=== PATIENT | male | born 1960 | race Caucasian/White ===

== ENCOUNTER → 2017-01-10 | Outpatient (CLI) | payer BC ==
[2017-01-10 09:26] LABS: CH 29.5; HCT 42.8 % (39.0-53.0); HDW 2.71; HGB 14.4 gm/dL (13.0-17.5); MCH 30.2 pg (25.0-35.0); MCHC 33.6 g/dL (31.0-37.0); MCV 89.8 fL (80.0-100.0); Mean Platelet Volume 7.1; RBC 4.76 m/uL (4.30-5.90); RDW 13.2 % (11.5-15.5); WBC 6.8 k/uL (3.8-10.6)
[2017-01-10 13:14] LABS: Lithium <0.2 mmol/L; Non-African American GFR(MDRD) >60 (>60 ml/min/1.73 sqM)
== END | disposition home or self-care (01) ==
LOC: LABWHC1 08:38
PROVIDERS: ATTEND Psychiatry & Neurology Psychiatry
DX: Z51.81 Encounter for therapeutic drug level monitoring (principal); I10 Essential (primary) hypertension; E03.9 Hypothyroidism, unspecified; Z79.899 Other long term (current) drug therapy
CPT/HCPCS: 36415; 80178; 82565; 84439; 84443; 85027

== ENCOUNTER → 2017-02-06 | Outpatient (CLI) | payer BC ==
[2017-02-06 11:02] LABS: Basophils % (A) 1 %; CH 28.7; CHCM 32.4; Eosinophils # (A) 0.2 k/uL (0-0.7); Eosinophils % (A) 3 %; HCT 45.2 % (39.0-53.0); HGB 14.7 gm/dL (13.0-17.5); Luc # (Auto) 0.23; Luc % (Auto) 3; Lymphocytes # (A) 1.5 k/uL (1.0-4.8); Lymphocytes % (A) 22 %; MCHC 32.6 g/dL (31.0-37.0); MCV 88.9 fL (80.0-100.0); Monocytes # (A) 0.4 k/uL (0-1.0); Monocytes % (A) 6 %; Neutrophils # (A) 4.5 k/uL (1.3-7.7); Neutrophils % (A) 65 %; RBC 5.09 m/uL (4.30-5.90); RDW 12.8 % (11.5-15.5); WBC 6.8 k/uL (3.8-10.6)
[2017-02-06 11:22] LABS: ALT 42 U/L (21-72); AST 25 U/L (17-59); Alkaline Phosphatase 100 U/L (38-126); Anion Gap 9 mmol/L; Blood Urea Nitrogen 19 mg/dL (9-20); Calcium 10.8 mg/dL (8.4-10.2); Carbon Dioxide 25 mmol/L (22-30); Chloride 105 mmol/L (98-107); Cholesterol 188 mg/dL (<200); Glucose 103 mg/dL (74-99); HDL Cholesterol 48 mg/dL (40-60); Lithium 0.6 mmol/L; Non-African American GFR(MDRD) >60 (>60 ml/min/1.73 sqM); Sodium 139 mmol/L (137-145); Triglycerides 118 mg/dL (<150)
[2017-02-06 11:31] LABS: Appearance,Urine Clear (Clear); Bilirubin,Urine Negative (Negative); Glucose,Urine (UA) Negative (Negative); Ketones,Urine Negative (Negative); Leukocyte Esterase,Urine Negative (Negative); Nitrite,Urine Negative (Negative); PH, Urine 5.5 (5.0-8.0); Protein,Urine Negative (Negative); Specific Gravity,Urine 1.009 (1.001-1.035); UA Billing (MACRO vs. MICRO) CHEM; Urobilinogen,Urine <2.0 mg/dL (<2.0)
[2017-02-06 11:58] LABS: Prostate Specific Antigen 2.19 ng/mL (0.00-4.00)
[2017-02-06 12:16] LABS: Vitamin B12 724 pg/mL (239-931)
[2017-02-06 13:21] LABS: Hemoglobin A1C 5.5 % (4.2-6.1)
[2017-02-06 14:24] LABS: Erythrocyte Sedimentation Rate 4 mm/hr (0-15)
== END ==
LOC: LABWHC1 10:15
PROVIDERS: ATTEND Psychiatry & Neurology Psychiatry
DX: I10 Essential (primary) hypertension (principal)
CPT/HCPCS: 36415; 80053; 80061; 80178; 81003; 82306; 82607; 83036; 84153; 84439; 84443; 84481; 85025; 85652

== ENCOUNTER → 2017-05-28 | Outpatient (CLI) | payer BC ==
[2017-05-28 12:52] LABS: CH 29.4; CHCM 33.8; HCT 43.9 % (39.0-53.0); HDW 2.61; HGB 14.9 gm/dL (13.0-17.5); MCH 29.6 pg (25.0-35.0); MCHC 33.9 g/dL (31.0-37.0); MCV 87.3 fL (80.0-100.0); Mean Platelet Volume 6.5; RBC 5.03 m/uL (4.30-5.90); RDW 12.9 % (11.5-15.5); WBC 7.1 k/uL (3.8-10.6)
[2017-05-28 13:10] LABS: ALT 52 U/L (21-72); Anion Gap 10 mmol/L; Blood Urea Nitrogen 20 mg/dL (9-20); Calcium 10.8 mg/dL (8.4-10.2); Carbon Dioxide 21 mmol/L (22-30); Chloride 108 mmol/L (98-107); Glucose 99 mg/dL (74-99); Lithium 0.4 mmol/L; Non-African American GFR(MDRD) >60 (>60 ml/min/1.73 sqM); Potassium 4.8 mmol/L (3.5-5.1); Sodium 139 mmol/L (137-145)
== END | disposition home or self-care (01) ==
LOC: LABWHC1 12:13
PROVIDERS: ATTEND Psychiatry & Neurology Psychiatry
DX: F31.60 Bipolar disorder, current episode mixed, unspecified (principal); Z79.899 Other long term (current) drug therapy
CPT/HCPCS: 36415; 80048; 80178; 84439; 84443; 84460; 85027

== ENCOUNTER → 2017-09-23 | Outpatient (CLI) | payer BC ==
[2017-09-23 11:18] LABS: Lithium 0.5 mmol/L; Non-African American GFR(MDRD) >60 (>60 ml/min/1.73 sqM)
== END | disposition home or self-care (01) ==
LOC: LABWHC1 08:55
PROVIDERS: ATTEND Psychiatry & Neurology Psychiatry
DX: F31.60 Bipolar disorder, current episode mixed, unspecified (principal); Z79.899 Other long term (current) drug therapy
CPT/HCPCS: 36415; 80178; 82565

== ENCOUNTER → 2018-01-17 | Outpatient (CLI) | payer BC ==
[2018-01-17 08:45] LABS: HCT 43.5 % (39.0-53.0); HGB 14.7 gm/dL (13.0-17.5); MCH 29.9 pg (25.0-35.0); MCHC 33.8 g/dL (31.0-37.0); MCV 88.5 fL (80.0-100.0); Mean Platelet Volume 6.5; Platelet Count 381 k/uL (150-450); RBC 4.91 m/uL (4.30-5.90); RDW 12.9 % (11.5-15.5); WBC 8.6 k/uL (3.8-10.6)
[2018-01-17 08:56] LABS: ALT 31 U/L (21-72); AST 24 U/L (17-59); Albumin 4.5 g/dL (3.5-5.0); Alkaline Phosphatase 98 U/L (38-126); Anion Gap 8 mmol/L; Blood Urea Nitrogen 19 mg/dL (9-20); Calcium 11.8 mg/dL (8.4-10.2); Carbon Dioxide 26 mmol/L (22-30); Chloride 104 mmol/L (98-107); Cholesterol 165 mg/dL (<200); Glucose 109 mg/dL (74-99); HDL Cholesterol 62 mg/dL (40-60); LDL Cholesterol,Calculated 85 mg/dL (0-99); Lithium 0.6 mmol/L; Potassium 4.5 mmol/L (3.5-5.1); Sodium 138 mmol/L (137-145); Total Bilirubin 0.9 mg/dL (0.2-1.3); Total Protein 7.4 g/dL (6.3-8.2); Triglycerides 88 mg/dL (<150)
[2018-01-17 09:11] LABS: T4, Free (Free Thyroxine) 1.19 ng/dL (0.78-2.19)
== END | disposition home or self-care (01) ==
LOC: LABWHC1 08:16
PROVIDERS: ATTEND Psychiatry & Neurology Psychiatry
DX: F31.60 Bipolar disorder, current episode mixed, unspecified (principal); Z79.899 Other long term (current) drug therapy
CPT/HCPCS: 36415; 80053; 80061; 80175; 80178; 84439; 84443; 85027

== ENCOUNTER → 2018-01-22 | Outpatient (CLI) | payer BC ==
[2018-01-22 22:16] LABS: Hemoglobin A1C 4.9 % (4.0-6.0)
== END | disposition home or self-care (01) ==
LOC: LABWHC1 11:46
PROVIDERS: ATTEND Psychiatry & Neurology Psychiatry
DX: E11.9 Type 2 diabetes mellitus without complications (principal); E21.3 Hyperparathyroidism, unspecified
CPT/HCPCS: 36415; 83036; 83970

== ENCOUNTER → 2018-03-13 | Outpatient (CLI) | payer BC ==
[2018-03-13 08:24] LABS: HCT 41.2 % (39.0-53.0); HGB 13.5 gm/dL (13.0-17.5); MCH 28.8 pg (25.0-35.0); MCHC 32.7 g/dL (31.0-37.0); MCV 88.2 fL (80.0-100.0); Mean Platelet Volume 6.7; Platelet Count 339 k/uL (150-450); RBC 4.67 m/uL (4.30-5.90); RDW 13.1 % (11.5-15.5); WBC 8.6 k/uL (3.8-10.6)
[2018-03-13 10:02] LABS: Lithium 0.4 mmol/L
== END | disposition home or self-care (01) ==
LOC: LABWHC1 07:54
PROVIDERS: ATTEND Psychiatry & Neurology Psychiatry
DX: F31.60 Bipolar disorder, current episode mixed, unspecified (principal); Z79.899 Other long term (current) drug therapy
CPT/HCPCS: 36415; 80175; 80178; 82947; 84460; 85027

== ENCOUNTER → 2018-04-30 | Outpatient (CLI) | payer BC ==
[2018-04-30 12:19] LABS: Appearance,Urine Clear (Clear); Bilirubin,Urine Negative (Negative); Blood,Urine Negative (Negative); Color,Urine Light Yellow; Glucose,Urine (UA) Negative (Negative); Ketones,Urine Negative (Negative); Leukocyte Esterase,Urine Negative (Negative); Nitrite,Urine Negative (Negative); Protein,Urine Negative (Negative); Specific Gravity,Urine 1.011 (1.001-1.035); Urobilinogen,Urine <2.0 mg/dL (<2.0)
[2018-04-30 12:25] LABS: ALT 31 U/L (21-72); AST 21 U/L (17-59); Albumin 4.2 g/dL (3.5-5.0); Alkaline Phosphatase 98 U/L (38-126); Anion Gap 8 mmol/L; Blood Urea Nitrogen 18 mg/dL (9-20); Calcium 11.3 mg/dL (8.4-10.2); Carbon Dioxide 23 mmol/L (22-30); Chloride 108 mmol/L (98-107); Cholesterol 174 mg/dL (<200); Glucose 100 mg/dL (74-99); HDL Cholesterol 63 mg/dL (40-60); LDL Cholesterol,Calculated 91 mg/dL (0-99); Lithium 0.9 mmol/L; Phosphorus 2.9 mg/dL (2.5-4.5); Potassium 5.2 mmol/L (3.5-5.1); Sodium 139 mmol/L (137-145); Total Bilirubin 0.9 mg/dL (0.2-1.3); Total Protein 6.6 g/dL (6.3-8.2); Triglycerides 99 mg/dL (<150)
[2018-04-30 12:29] LABS: Basophils % (A) 0 %; Eosinophils # (A) 0.2 k/uL (0-0.7); Eosinophils % (A) 2 %; HCT 42.1 % (39.0-53.0); HGB 13.5 gm/dL (13.0-17.5); Lymphocytes # (A) 1.2 k/uL (1.0-4.8); Lymphocytes % (A) 15 %; MCH 29.3 pg (25.0-35.0); MCHC 32.1 g/dL (31.0-37.0); MCV 91.3 fL (80.0-100.0); Mean Platelet Volume 6.4; Monocytes # (A) 0.4 k/uL (0-1.0); Monocytes % (A) 5 %; Neutrophils % (A) 76 %; Platelet Count 339 k/uL (150-450); RBC 4.61 m/uL (4.30-5.90); RDW 13.1 % (11.5-15.5); WBC 7.9 k/uL (3.8-10.6)
[2018-04-30 12:35] LABS: T4, Free (Free Thyroxine) 0.86 ng/dL (0.78-2.19)
[2018-04-30 12:49] LABS: Prostate Specific Antigen 2.09 ng/mL (0.00-4.00)
[2018-04-30 14:26] LABS: Erythrocyte Sedimentation Rate 4 mm/hr (0-15)
[2018-04-30 16:26] LABS: Parathyroid Hormone Intact 101.2 pg/mL (14.0-72.0)
[2018-04-30 16:37] LABS: Vitamin D 25 Hydroxy 38.6 ng/mL (30.0-100.0)
[2018-04-30 18:43] LABS: Protein, Total 6.5 g/dL (6.2-8.2)
[2018-05-01 11:37] LABS: Albumin 4.01 g/dL (3.80-4.90); Gamma Globulin 0.92 g/dL (0.70-1.50)
== END | disposition home or self-care (01) ==
LOC: LABWHC1 11:06
PROVIDERS: ATTEND Internal Medicine
DX: F31.60 Bipolar disorder, current episode mixed, unspecified (principal); Z79.899 Other long term (current) drug therapy
CPT/HCPCS: 36415; 80053; 80061; 80178; 81003; 82306; 82607; 83036; 83970; 84100; 84153; 84165; 84439; 84443; 85025; 85652

== ENCOUNTER 2018-07-06 11:12 | Inpatient (IN) | payer MEDICARE, BC ==
--- NOTE | 2018-07-06 11:37 | ED ---
General Adult HPI - General Chief complaint: Psychiatric Symptoms Stated complaint: EPS eval Time Seen by Provider: 07/06/18 11:25 Source: patient, RN notes reviewed Mode of arrival: ambulatory Limitations: no limitations - History of Present Illness Initial comments: Patient is a 58-year-old male with significant past medical history for bipolar , presents to the emergency room today with a chief complaint of suicidal ideation. Patient does admit that he was looking for both his garage earlier today to hang himself. Patient does admit that his had increased anxiety for the past 9 months. They have been following up with [facility]. States there have been some medication changes recently. Patient states it's he's had increased anxiety. She states it difficult time sleeping. States he has stomach feels like it's in knots at times. States he feels like he has difficult time urinating completely emptying his bladder. Patient states this is been ongoing for some time is unsure if it's medication related. Patient denies any recent fever, chills, shortness of breath, chest pain, back pain, nausea or vomiting, numbness or tingling, headaches or visual changes, or any other complaints. - Related Data Home Medications Medication Instructions Recorded Confirmed ALPRAZolam 0.25 mg PO DIRECTED PRN 11/12/14 04/26/15 [place] Carbonate [[place] 300 mg PO BID 11/12/14 04/26/15 Carbonate ER] Venlafaxine HCl [Venlafaxine HCl 150 mg PO HS 11/12/14 04/26/15 ER] lamoTRIgine [Lamotrigine] 100 mg PO BID 11/12/14 04/26/15 Venlafaxine HCl ER [Effexor Xr] 150 mg PO DAILY 04/26/15 04/26/15 Allergies Allergy/AdvReac Type Severity Reaction Status Date / Time No Known Allergies Allergy Verified 07/06/18 11:16 Review of Systems ROS Statement: Those systems with pertinent positive or pertinent negative responses have been documented in the HPI. ROS Other: All systems not noted in ROS Statement are negative. Past Medical History Past Medical History: Hypertension Additional Past Medical History / Comment(s): HX POLYP History of Any Multi-Drug Resistant Organisms: None Reported Past Surgical History: No Surgical Hx Reported Past Anesthesia/Blood Transfusion Reactions: No Reported Reaction Past Psychological History: Anxiety, Bipolar Smoking Status: Never smoker Past Alcohol Use History: Occasional Past Drug Use History: None Reported General Exam - General Exam Comments Initial Comments: General: The patient is awake and alert, in no distress, and does not appear acutely ill. Eye: Pupils are equal, round and reactive to light, extra-ocular movements are intact. No nystagmus. There is normal conjunctiva bilaterally. No signs of icterus. Ears, nose, mouth and throat: There are moist mucous membranes and no oral lesions. Neck: The neck is supple, there is no tenderness or JVD. Cardiovascular: There is a regular rate and rhythm. No murmur, rub or gallop is appreciated. Respiratory: Lungs are clear to auscultation, respirations are non-labored, breath sounds are equal. No wheezes, stridor, rales, or rhonchi. Gastrointestinal: Soft, non-distended, non-tender abdomen without masses or organomegaly noted. There is no rebound or guarding present. No CVA tenderness. Musculoskeletal: Normal ROM, no tenderness. Sensation intact. Neurological: A&O x 3. CN II-XII intact, There are no obvious motor or sensory deficits. Coordination appears grossly intact. Speech is normal. Skin: Skin is warm and dry and no rashes or lesions are noted. Psychiatric: Cooperative. Pacing in the room. Limitations: no limitations Course Vital Signs 07/06/18 11:16 Temperature 98.5 F Pulse Rate 65 Respiratory 18 Rate Blood Pressure 154/81 O2 Sat by Pulse 97 Oximetry Medical Decision Making - Medical Decision Making Patient has been seen here in the emergency room by [facility]. They recommended admission to the hospital. Patient will sign himself in. - Lab Data Result diagrams: 07/06/18 12:07 07/06/18 12:07 Lab Results 07/06/18 07/06/18 07/06/18 Range/Units 11:46 12:07 12:07 WBC 10.7 H (3.8-10.6) k/uL RBC 4.68 (4.30-5.90) m/uL Hgb 14.2 (13.0-17.5) gm/dL Hct 41.2 (39.0-53.0) % MCV 87.9 (80.0-100.0) fL MCH 30.2 (25.0-35.0) pg MCHC 34.4 (31.0-37.0) g/dL RDW 12.2 (11.5-15.5) % Plt Count 376 (150-450) k/uL Neutrophils % 83 % Lymphocytes % 11 % Monocytes % 4 % Eosinophils % 0 % Basophils % 0 % Neutrophils # 8.9 H (1.3-7.7) k/uL Lymphocytes # 1.1 (1.0-4.8) k/uL Monocytes # 0.5 (0-1.0) k/uL Eosinophils # 0.0 (0-0.7) k/uL Basophils # 0.0 (0-0.2) k/uL Sodium 131 L (137-145) mmol/L Potassium 5.1 (3.5-5.1) mmol/L Chloride 100 (98-107) mmol/L Carbon Dioxide 21 L (22-30) mmol/L Anion Gap 10 mmol/L BUN 17 (9-20) mg/dL Creatinine 1.00 (0.66-1.25) mg/dL Est GFR (CKD-EPI)AfAm >90 (>60 ml/min/1.73 sqM) Est GFR (CKD-EPI)NonAf 82 (>60 ml/min/1.73 sqM) Glucose 110 H (74-99) mg/dL Calcium 11.9 H (8.4-10.2) mg/dL Total Bilirubin 1.1 (0.2-1.3) mg/dL AST 38 (17-59) U/L ALT 40 (21-72) U/L Alkaline Phosphatase 97 (38-126) U/L Total Protein 7.2 (6.3-8.2) g/dL Albumin 4.4 (3.5-5.0) g/dL TSH 2.220 (0.465-4.680) mIU/L Urine Color Yellow Urine Appearance Clear (Clear) Urine pH 6.5 (5.0-8.0) Ur Specific [place] 1.012 (1.001-1.035) Urine Protein Negative (Negative) Urine Glucose (UA) Negative (Negative) Urine Ketones 1+ H (Negative) Urine Blood Negative (Negative) Urine Nitrite Negative (Negative) Urine Bilirubin Negative (Negative) Urine Urobilinogen 2.0 (<2.0) mg/dL Ur Leukocyte Esterase Negative (Negative) Urine Opiates Screen Not Detected (NotDetected) Ur Oxycodone Screen Not Detected (NotDetected) Urine Methadone Screen Not Detected (NotDetected) Ur Propoxyphene Screen Not Detected (NotDetected) Ur Barbiturates Screen Not Detected (NotDetected) U Tricyclic Antidepress Not Detected (NotDetected) Ur Phencyclidine Scrn Not Detected (NotDetected) Ur Amphetamines Screen Not Detected (NotDetected) U Methamphetamines Scrn Not Detected (NotDetected) U Benzodiazepines Scrn Detected H (NotDetected) [place] 1.2 mmol/L Urine Cocaine Screen Not Detected (NotDetected) U Marijuana (THC) Screen Not Detected (NotDetected) Disposition Clinical Impression: Suicidal ideation Disposition: TRANSFER TO PSYCH HOSP/UNIT Condition: Stable Is patient prescribed a controlled substance at d/c from ED?: No Referrals: Adryan Mann MD [Primary Care Provider] - 1-2 days Time of Disposition: 13:45
[2018-07-06 12:07] LABS: Appearance,Urine Clear (Clear); Bilirubin,Urine Negative (Negative); Blood,Urine Negative (Negative); Color,Urine Yellow; Glucose,Urine (UA) Negative (Negative); Ketones,Urine 1+ (Negative); Leukocyte Esterase,Urine Negative (Negative); Nitrite,Urine Negative (Negative); PH, Urine 6.5 (5.0-8.0); Protein,Urine Negative (Negative); Specific Gravity,Urine 1.012 (1.001-1.035)
[2018-07-06 12:19] LABS: Amphetamine Screen,Urine Not Detected (NotDetected); Barbiturate Screen,Urine Not Detected (NotDetected); Benzodiazepines Screen,Urine Detected (NotDetected); Cocaine Screen,Urine Not Detected (NotDetected); Methadone Screen, Urine Not Detected (NotDetected); Opiate Screen,Urine Not Detected (NotDetected); Oxycodone Screen, Urine Not Detected (NotDetected); Phencyclidine Screen,Urine Not Detected (NotDetected); Tricyclic Antidepressant,Urine Not Detected (NotDetected); Urn Cannabinoid Scrn Not Detected (NotDetected)
[2018-07-06 12:25] LABS: Basophils % (A) 0 %; Eosinophils % (A) 0 %; HCT 41.2 % (39.0-53.0); HGB 14.2 gm/dL (13.0-17.5); Lymphocytes # (A) 1.1 k/uL (1.0-4.8); Lymphocytes % (A) 11 %; MCH 30.2 pg (25.0-35.0); MCHC 34.4 g/dL (31.0-37.0); MCV 87.9 fL (80.0-100.0); Mean Platelet Volume 6.4; Monocytes # (A) 0.5 k/uL (0-1.0); Monocytes % (A) 4 %; Neutrophils # (A) 8.9 k/uL (1.3-7.7); Neutrophils % (A) 83 %; Platelet Count 376 k/uL (150-450); RBC 4.68 m/uL (4.30-5.90); RDW 12.2 % (11.5-15.5); WBC 10.7 k/uL (3.8-10.6)
[2018-07-06 12:41] LABS: ALT 40 U/L (21-72); AST 38 U/L (17-59); Albumin 4.4 g/dL (3.5-5.0); Alkaline Phosphatase 97 U/L (38-126); Anion Gap 10 mmol/L; Blood Urea Nitrogen 17 mg/dL (9-20); Calcium 11.9 mg/dL (8.4-10.2); Carbon Dioxide 21 mmol/L (22-30); Chloride 100 mmol/L (98-107); Glucose 110 mg/dL (74-99); Lithium 1.2 mmol/L; Potassium 5.1 mmol/L (3.5-5.1); Sodium 131 mmol/L (137-145); Total Bilirubin 1.1 mg/dL (0.2-1.3); Total Protein 7.2 g/dL (6.3-8.2)
[2018-07-06] MEDS ORDERED: LORazepam 1 MG TAB PO STA (13:44)
[2018-07-06] MEDS ORDERED: MAG HYDROX/AL HYDROX/SIMETH 30 ML CUP PO PRN (14:34)
[2018-07-06] MEDS ORDERED: ZIPRASIDONE 20 MG VIAL IM PRN (14:34)
[2018-07-06] MEDS ORDERED: ACETAMINOPHEN TAB 325 MG TAB PO PRN (14:34)
[2018-07-06] MEDS ORDERED: MAGNESIUM HYDROXIDE 2,400 MG/10 ML CUP PO PRN (14:34)
[2018-07-06] MEDS ORDERED: CYANOCOBALAMIN 1,000 MCG/ML 1 ML VIAL SQ SCH (14:45)
[2018-07-06 15:04] VITALS: BMI 26.6
--- NOTE | 2018-07-06 17:34 | P.MDCNMH ---
History of Present Illness H&P Date: 07/06/18 Chief Complaint: Anxiousness 58-year-old M with PMH of bipolar disorder, hypertension presents to the ED for suicidal ideation. Patient endorses constant anxiousness which is getting worse over the past 9 months. Patient states that he is seeing his psychiatrist regularly, and is in the process of getting his medications tweaked. Anxiousness is associated with epigastric pain. Patient reports the ball of the stomach wrenches up all 4 of his extremities feel heavy. During his anxiety attacks, patient reports being able to take the edge off by pacing. Patient also endorses a dry mouth. Patient reports sleeping about 6-7 hours in the last week. Patient reports one episode of nausea and vomiting yesterday.patient reports difficulty urinating over the last 6 months. His urine stream is weak, and reports of dribbling. he denies any hematuria or dysuria. Patient also endorses decreased appetite over this time. He denies any headache, lower extremity edema, fever, chills, cough, chest pain , shortness of breath, changes in bowel habits, dizziness, numbness/weakness/ tingling. In the ED patient was found to have a mild leukocytosis of 10.7. He had a sodium of 131. Bicarbonate was 21. Serum glucose was 110. Serum calcium was 11.9. Urinalysis showed 1+ ketones. Urine drug screen showed positive for benzodiazepines. His lithium level was within normal limits. Review of Systems All systems: negative Past Medical History Past Medical History: Hypertension Additional Past Medical History / Comment(s): HX POLYP History of Any Multi-Drug Resistant Organisms: None Reported Past Surgical History: No Surgical Hx Reported Past Anesthesia/Blood Transfusion Reactions: No Reported Reaction Past Psychological History: Anxiety, Bipolar Smoking Status: Never smoker Past Alcohol Use History: Occasional Past Drug Use History: None Reported Medications and Allergies Home Medications Medication Instructions Recorded Confirmed Type Citalopram Hydrobromide [CeleXA] 20 mg PO DAILY 07/06/18 07/06/18 History Cyanocobalamin [Vitamin B-12 1,000 mcg SQ Q28D 07/06/18 07/06/18 History Injection] Lisinopril [Zestril] 20 mg PO DAILY 07/06/18 07/06/18 History [place] Carbonate 150 mg PO HS 07/06/18 07/06/18 History [place] Carbonate [[place] 450 mg PO BID 07/06/18 07/06/18 History Carbonate ER] lamoTRIgine [LaMICtal] 200 mg PO HS 07/06/18 07/06/18 History Allergies Allergy/AdvReac Type Severity Reaction Status Date / Time alprazolam [From Xanax] AdvReac Unknown Verified 07/06/18 14:50 aripiprazole [From Abilify] AdvReac Unknown Verified 07/06/18 14:50 olanzapine [From Zyprexa] AdvReac Unknown Verified 07/06/18 14:50 Physical Exam Vitals: Vital Signs Temp Pulse Pulse Resp BP BP Pulse Ox 07/06/18 14:55 98.6 F 60 18 143/68 07/06/18 14:18 98.9 F 63 18 164/79 98 07/06/18 11:16 98.5 F 65 18 154/81 97 Intake and Output 07/06/18 07/06/18 07/06/18 06:59 14:59 22:59 Other: Voiding Method Toilet Weight 84.056 kg General: [non toxic], [no distress], [appears anxious], [pacing the room] Derm: [warm], [dry] Head: [atraumatic], [normocephalic], [symmetric] Eyes: [EOMI], [no lid lag], [anicteric sclera] Mouth: [no lip lesion], [mucus membranes moist] Cardiovascular: [S1S2 reg], [no murmur, rubs or gallops] Lungs: [CTA bilateral], [no rhonchi, no rales] , [no accessory muscle use] Abdominal: [soft], [ nontender to palpation], [no guarding], [no appreciable organomegaly] Ext: [no gross muscle atrophy], [no edema], [no contractures] Neuro: [ CN II-XI grossly intact], [no focal neuro deficits] Psych: [Alert], [oriented], [appropriate affect] Cranial Nerve Examination - Cranial Nerves Cranial Nerve II- Optic: Intact Cranial Nerve III- Oculomotor: Intact Cranial Nerve IV- Trochlear: Intact Cranial Nerve V- Trigeminal: Intact Cranial Nerve - Abducens: Intact Cranial Nerve VII- Facial: Intact Cranial Nerve VIII- Auditory: Intact Cranial Nerve IX- Glossopharyngeal: Intact Cranial Nerve X- Vagus: Intact Cranial Nerve XI- Accessory: Intact Cranial Nerve XII- Hypoglossal: Intact Results CBC & Chem 7: 07/06/18 12:07 07/06/18 12:07 Labs: Abnormal Lab Results - Last 24 Hours (Table) 07/06/18 07/06/18 07/06/18 Range/Units 11:46 12:07 12:07 WBC 10.7 H (3.8-10.6) k/uL Neutrophils # 8.9 H (1.3-7.7) k/uL Sodium 131 L (137-145) mmol/L Carbon Dioxide 21 L (22-30) mmol/L Glucose 110 H (74-99) mg/dL Calcium 11.9 H (8.4-10.2) mg/dL Urine Ketones 1+ H (Negative) U Benzodiazepines Scrn Detected H (NotDetected) Assessment and Plan Assessment: Assessment and Plan 1. Anxiousness: Anxiety disorder vs. hypercalcemia. Patient reports mild improvement in Anxiety since starting Ativan here. TSH 2.220 within normal limits. 2. Hypercalcemia: Ca 11.9, could be contributing to his anxiety. PTH 101.2 (2017) and Vit D 38.6 (04/2018). Daily CMP. FU 24H UCa, PTH, Vit D, neck US 3. Hyponatremia: Na 131. Possibly from dehydration vs SIADH from SSRI use. Encourage PO hydration. Osm and ULytes if no improvement tomorrow. Daily CMP 4. Leukocytosis: WBC 10.7. Mild. Afebrile. No signs of infection. Daily CBC 5. HTN: BP 164/79. Continue Lisinopril 20 mg PO QD and start Amlodipine 5 mg PO QD. Monitor vitals, adjust medications as necessary. FU A1c, Lipid panel. 6. Depression, Bipolar disorder: Continue Celexa 20 mg PO QD, Lamictal 200 mg PO QHS, [place] 450 mg PO BID. Ativan and Geodon PRN for agitation. FU Psyc 7. DVT Prophylaxis: Early ambulation.
[2018-07-06] MEDS ORDERED: hydrOXYzine PAMOATE 25 MG CAP PO PRN (18:41)
[2018-07-06] MEDS ORDERED: CYANOCOBALAMIN 1,000 MCG/ML 1 ML VIAL IM ONE (20:00)
[2018-07-06] MEDS ORDERED: LITHIUM CARBONATE 150 MG CAP PO SCH (21:00)
[2018-07-06] MEDS: LORazepam 1 MG TAB PO PRN (21:06)
[2018-07-06] MEDS: lamoTRIgine 100 MG TAB PO SCH (21:06)
[2018-07-06] MEDS: LITHIUM CARBONATE ER 450 MG TABLET.ER PO SCH (21:07)
[2018-07-07] MEDS: LORazepam 1 MG TAB PO PRN (06:32)
[2018-07-07 08:26] LABS: Albumin 4.2 g/dL (3.5-5.0); Calcium 11.8 mg/dL (8.4-10.2); Potassium 5.3 mmol/L (3.5-5.1); Total Bilirubin 1.2 mg/dL (0.2-1.3); Total Protein 7.1 g/dL (6.3-8.2)
[2018-07-07] MEDS: LITHIUM CARBONATE ER 450 MG TABLET.ER PO SCH ×2 (10:04→20:23)
[2018-07-07] MEDS: LISINOPRIL 20 MG TAB PO SCH (10:04)
[2018-07-07] MEDS: hydrOXYzine PAMOATE 25 MG CAP PO PRN (10:04)
[2018-07-07] MEDS: CITALOPRAM HYDROBROMIDE 20 MG TAB PO SCH (10:04)
--- NOTE | 2018-07-07 11:04 | US ---
EXAMINATION TYPE: US thyroid st tissue head/neck DATE OF EXAM: 07/07/2018 COMPARISON: NONE CLINICAL HISTORY: 58-year-old male Elevated PTH, check parathyroids please. Abnormal labs, pt states no known h/o thyroid issues TECHNIQUE: Multiple sonographic images of the thyroid gland are obtained. FINDINGS: GLAND SIZE: Right Lobe: 5.2 x 2.0 x 1.5 cm Overall Parenchyma: Slightly heterogeneous Left Lobe: 5.0 x 1.8 x 1.7 cm Overall Parenchyma: Slightly heterogeneous Isthmus Thickness: 0.5 cm NODULES RIGHT: # of nodules measured on right: 1 1. Small 3mm cystic nodule Bilateral neck scanned, no evidence of lymphadenopathy. Small 3mm cystic nodule on right, no other no dules visualized. Please note parathyroid areas scanned and no abnormality could be appreciated. IMPRESSION: Tiny 3 mm cystic nodule on the right. The parathyroid areas were scanned and show no abnormality. Considering the utility of nuclear medicine parathyroid scan if persistent clinical concern.
[2018-07-07] MEDS: CHOLECALCIFEROL 1,000 UNIT TAB PO SCH (12:36)
--- NOTE | 2018-07-07 15:39 | P.PN ---
Progress Note - Text Progress Note Date: 07/07/18 Patient is seen and examined. No acute events overnight. Patient reports improvement in his anxiousness since starting Ativan. Patient reports he is able to sleep since being admitted. Patient denies any headache, lower extremity edema, nausea, vomiting, fever, cough, chest pain, shortness of breath , palpitations, abdominal pain, changes in urination or bowel habits, appetite or weight. AOx3 Patient is in NAD. Normal S1 S2. RRR. No murmurs, rubs or gallops. No LE edema. Assessment and Plan 1. Anxiousness: Anxiety disorder vs. hypercalcemia. Patient reports mild improvement in Anxiety since starting Ativan here. There is a possibility that hyperCa is from hyperPTH which could be induced by [place]. TSH 2.220 within normal limits. Continue Ativan 1 mg PO TID and PRN. 2. Hypercalcemia: Ca 11.8, could be contributing to his anxiety. PTH 101.2 (2017) and Vit D 38.6 (04/2018). Neck US is unremarkable. Daily CMP. Will order NM Parathyroid study to r/o parathyroid adenoma or hyperplasia as the cause. If NM study is normal, consider DC [place] and switch to another mood stabilizer. FU 24H UCa, PTH repeat, Vit D repeat 3. Hyponatremia: Na 131 to 133. Possibly from dehydration vs SIADH from SSRI use. Encourage PO hydration. Daily CMP. FU Serum + UOSm and ULytes 4. Leukocytosis: WBC 10.7. Mild. Afebrile. No signs of infection. Daily CBC 5. HTN: BP 121/77. Continue Lisinopril 20 mg PO QD and start Amlodipine 5 mg PO QD. Lipid panel within normal limits. Monitor vitals, adjust medications as necessary. FU A1c 6. Depression, Bipolar disorder and Anxiety: Management as per Psychiatry. 7. DVT Prophylaxis: Early ambulation.
[2018-07-07] MEDS: LORazepam 1 MG TAB PO SCH ×2 (15:59→21:25)
--- NOTE | 2018-07-07 17:17 | P.HP ---
Psychiatric H&P - . H&P Date: 07/07/18 History & Physical: Identification data: The patient is a 58-year-old male who presented to the psychiatric unit voluntarily. Reason for Admission: He presents with complaints of 8 months of increasing anxiety, panic attacks and increasing suicidal ideation with a plan to hang himself. He stated that his son recognize the seriousness of his suicidal ideation and presented himself from hanging himself the week prior to admission. History of Present Illness: She has a history of bipolar illness and has been under treatment by a private psychiatrist, Dr. Lundberg, for the last 20 years. The illness and been successfully managed with lithium. He stated that he has felt anxious much of his life but anxiety worsened dramatically in October 2017. He was unable to identify a single precipitant preceding the worsening of anxiety. He described severe and persistent anxiety that occasionally he builds up to crescendo consistent with a panic attack. He described constant subjective tension and worrying about minor matters. He stated that he is financially secure, has a stable marriage and has a support his family. However he finds himself worrying about financial matters, his relationship with his family and his relationship with neighbors. He recognizes that there is no rational reason for his constant worry and concern. He expressed his fears without questioning and had a persistent apprehensive attitude on his face and his speech. He described marked somatic symptoms anxiety including dry mouth, indigestion, diarrhea, frequent urination, headaches, hyperventilation and sweating. He described a loss of appetite and difficulty eating. He experienced heaviness in his limbs, backache, headache etc. In addition he described persistent symptoms of depression, hopelessness, helplessness and worthlessness. He has both initial and middle insomnia. He alleges that he had not been able to sleep the week prior to admission. He is unable to concentrate or or complete simple chores. He has given up on many of his activities. He denied having periods of elevated mood or persistent and of irritability consistent with magy or hypomania. He denied such psychotic symptoms as auditory, visual or olfactory hallucinations, ideas of reference, thought insertion etc. He reported occasional use of alcohol and believes that the alcohol had temporarily relieve his anxiety symptoms. He denied daily use of alcohol. He denied use of other drugs to get high, help him sleep or changes mood. He stated that his outpatient psychiatrist Past Psychiatric History: He was diagnosed with a bipolar illness over 20 years ago. The diagnosis followed a period time of increased energy, decreased sleep and increased involvement in activities. He reported that the bipolar illness had been successfully treated with Lithobid 450 mg by mouth twice a day. He is met with his outpatient psychiatrist for over 20 years in addition to meeting "intermittently" with a clinical psychologist for individual therapy. He stated that his psychiatrist has prescribed several other medications that were ineffective in treating anxiety. He can only recall the medication Zyprexa and Abilify but stated other medications were prescribed over the last 9 months. He was admitted to the partial hospital program at [facility] for 2 weeks prior to this admission. He alleged he experienced no benefit from the partial hospitalization. He has one prior psychiatric hospitalizations to this unit in 2001. Records not available at this time. Substance use history: He denied history of alcohol or drug use problems. He denied that family or friends have expressed concern to him about his alcohol or drug use. He denied participation in a substance abuse treatment program. Legal history: None Family psychiatric/substance use history: He stated that all his brothers and sisters have been diagnosed with bipolar illness. Personal history: He earned a engineering degree from [employer] in [facility]. 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 He took a medical care home in 2016 as a result of a decline in his work performance. He stated that his supervisors complained about about an apparent decline in his cognitive abilities. He is been for 27 years. He has 2 adult sons. Mental Status Exam. He presented as a casually groomed middle-aged male who was pleasant on approach. He is markedly tremulous and had an anxious- appearing demeanor. He made eye contact and attended to the interview. He is no prominent physical abnormalities. He had an anxious and distressed facial expression. He was alert and oriented to person, place and time. He showed slight psychomotor agitation, persistent hand tremor. His speech was spontaneous with slight decrease in rate and rhythm. He had no articulation difficulties. His affect was depressed and anxious. At times to anxiety was intense and uncontrollable. He expressed suicidal ideation and wishes and that he does not feel he can continue to live with the severity and persistence of his anxiety. He expressed feelings of hopelessness, helplessness and worthlessness. He ruminated about anxiety and his inability to perform his normal activities. He did not express phobias, ideas reference, paranoid ideation or delusional thoughts. His thinking was concrete but his associations were coherent, logical and goal directed. He did not demonstrate clang associations, perseverations, neologisms or blocking. He denied hallucinations and did not appear to be responding to internal stimuli. Global impression of intellect is above average. He is aware of his illness and need for mental health treatment. We completed the [facility] Cognitive Assessment. His total score was 24/30. Normal score is considered greater than 26. She showed marked impairment in delayed recall. He had no impairment in visual spatial/is 60 functioning, naming, attention, language, abstraction or orientation. Allergies Allergy/AdvReac Type Severity Reaction Status Date / Time alprazolam [From Xanax] AdvReac Unknown Verified 07/06/18 14:50 aripiprazole [From Abilify] AdvReac Unknown Verified 07/06/18 14:50 olanzapine [From Zyprexa] AdvReac Unknown Verified 07/06/18 14:50 Vital Signs Temp 97.4 F L 07/07/18 06:34 Pulse 77 07/07/18 06:34 Resp 18 07/07/18 06:34 BP 147/73 07/07/18 06:34 Pulse Ox 98 07/06/18 14:18 Intake & Output 07/06/18 07/07/18 07/07/18 18:59 06:59 18:59 Weight 84.056 kg Other: Voiding Method Toilet Laboratory Last Values WBC 10.7 k/uL (3.8-10.6) H 07/06/18 12:07 RBC 4.68 m/uL (4.30-5.90) 07/06/18 12:07 Hgb 14.2 gm/dL (13.0-17.5) 07/06/18 12:07 Hct 41.2 % (39.0-53.0) 07/06/18 12:07 MCV 87.9 fL (80.0-100.0) 07/06/18 12:07 MCH 30.2 pg (25.0-35.0) 07/06/18 12:07 MCHC 34.4 g/dL (31.0-37.0) 07/06/18 12:07 RDW 12.2 % (11.5-15.5) 07/06/18 12:07 Plt Count 376 k/uL (150-450) 07/06/18 12:07 Neutrophils % 83 % 07/06/18 12:07 Lymphocytes % 11 % 07/06/18 12:07 Monocytes % 4 % 07/06/18 12:07 Eosinophils % 0 % 07/06/18 12:07 Basophils % 0 % 07/06/18 12:07 Neutrophils # 8.9 k/uL (1.3-7.7) H 07/06/18 12:07 Lymphocytes # 1.1 k/uL (1.0-4.8) 07/06/18 12:07 Monocytes # 0.5 k/uL (0-1.0) 07/06/18 12:07 Eosinophils # 0.0 k/uL (0-0.7) 07/06/18 12:07 Basophils # 0.0 k/uL (0-0.2) 07/06/18 12:07 Sodium 133 mmol/L (137-145) L 07/07/18 07:45 Potassium 5.3 mmol/L (3.5-5.1) H 07/07/18 07:45 Chloride 101 mmol/L (98-107) 07/07/18 07:45 Carbon Dioxide 24 mmol/L (22-30) 07/07/18 07:45 Anion Gap 8 mmol/L 07/07/18 07:45 BUN 18 mg/dL (9-20) 07/07/18 07:45 Creatinine 1.06 mg/dL (0.66-1.25) 07/07/18 07:45 Est GFR (CKD-EPI)AfAm 89 (>60 ml/min/1.73 sqM) 07/07/18 07:45 Est GFR (CKD-EPI)NonAf 77 (>60 ml/min/1.73 sqM) 07/07/18 07:45 Glucose 100 mg/dL (74-99) H 07/07/18 07:45 Calcium 11.8 mg/dL (8.4-10.2) H 07/07/18 07:45 Total Bilirubin 1.2 mg/dL (0.2-1.3) 07/07/18 07:45 AST 37 U/L (17-59) 07/07/18 07:45 ALT 35 U/L (21-72) 07/07/18 07:45 Alkaline Phosphatase 79 U/L (38-126) 07/07/18 07:45 Total Protein 7.1 g/dL (6.3-8.2) 07/07/18 07:45 Albumin 4.2 g/dL (3.5-5.0) 07/07/18 07:45 Triglycerides 81 mg/dL (<150) 07/07/18 07:45 Cholesterol 161 mg/dL (<200) 07/07/18 07:45 LDL Cholesterol, Calc 62 mg/dL (0-99) 07/07/18 07:45 HDL Cholesterol 83 mg/dL (40-60) H 07/07/18 07:45 TSH 2.220 mIU/L (0.465-4.680) 07/06/18 12:07 Urine Color Yellow 07/06/18 11:46 Urine Appearance Clear (Clear) 07/06/18 11:46 Urine pH 6.5 (5.0-8.0) 07/06/18 11:46 Ur Specific [place] 1.012 (1.001-1.035) 07/06/18 11:46 Urine Protein Negative (Negative) 07/06/18 11:46 Urine Glucose (UA) Negative (Negative) 07/06/18 11:46 Urine Ketones 1+ (Negative) H 07/06/18 11:46 Urine Blood Negative (Negative) 07/06/18 11:46 Urine Nitrite Negative (Negative) 07/06/18 11:46 Urine Bilirubin Negative (Negative) 07/06/18 11:46 Urine Urobilinogen 2.0 mg/dL (<2.0) 07/06/18 11:46 Ur Leukocyte Esterase Negative (Negative) 07/06/18 11:46 Urine Opiates Screen Not Detected (NotDetected) 07/06/18 11:46 Ur Oxycodone Screen Not Detected (NotDetected) 07/06/18 11:46 Urine Methadone Screen Not Detected (NotDetected) 07/06/18 11:46 Ur Propoxyphene Screen Not Detected (NotDetected) 07/06/18 11:46 Ur Barbiturates Screen Not Detected (NotDetected) 07/06/18 11:46 U Tricyclic Antidepress Not Detected (NotDetected) 07/06/18 11:46 Ur Phencyclidine Scrn Not Detected (NotDetected) 07/06/18 11:46 Ur Amphetamines Screen Not Detected (NotDetected) 07/06/18 11:46 U Methamphetamines Scrn Not Detected (NotDetected) 07/06/18 11:46 U Benzodiazepines Scrn Detected (NotDetected) H 07/06/18 11:46 [place] 1.2 mmol/L 07/06/18 12:07 Urine Cocaine Screen Not Detected (NotDetected) 07/06/18 11:46 U Marijuana (THC) Screen Not Detected (NotDetected) 07/06/18 11:46 07/07/18 09:55 07/07/18 10:40 Assessment and Plan Assessment: He is a 58-year-old male who has a history of a bipolar illness. He [facility] with increasing anxiety depression and suicidal ideation. The anxiety apparently began abruptly October 2017. He has been persistent, severe and incapacitating. He reported no benefit from outpatient treatment of anxiety. He presented to the psychiatric unit with increasing suicidal ideation with a plan to hang himself. He has marked symptoms of depression and anxiety. Physical exam showed elevated calcium and he is currently being evaluated for hypercalcemia. (1) Bipolar disorder, current episode depressed, severe, without psychotic features Current Visit: Yes Status: Acute Priority: High Code(s): F31.4 - BIPOLAR DISORD, CRNT EPSD DEPRESS, SEV, W/O PSYCH FEATURES SNOMED Code(s): 941423856 (2) Generalized anxiety disorder with panic attacks Current Visit: Yes Status: Chronic Priority: High Code(s): F41.1 - GENERALIZED ANXIETY DISORDER; F41.0 - PANIC DISORDER [EPISODIC PAROXYSMAL ANXIETY] SNOMED Code(s): 50770209 (3) Memory impairment Current Visit: Yes Status: Acute Priority: Medium Code(s): R41.3 - OTHER AMNESIA SNOMED Code(s): 649776858 (4) Hypercalcemia Current Visit: Yes Status: Chronic Priority: Medium Code(s): E83.52 - HYPERCALCEMIA SNOMED Code(s): 40402470 (5) Suicidal ideation Current Visit: Yes Status: Acute Priority: High Code(s): R45.851 - SUICIDAL IDEATIONS SNOMED Code(s): 0339317 Plan: Continue inpatient psychiatric hospitalization due to the severity of his psychiatric symptoms and suicidal risk. Medicine service to evaluate hypercalcemia. Continue outpatient dose of Lithobid 400 mg twice a day pending the results of the medical evaluation of hypercalcemia. Continue Celexa 20 mg daily and titrated according to clinical response and tolerance. Change Ativan to 1 mg 3 times a day for treatment of anxiety symptoms and consider clonazepam as an alternative. Continue safety precautions. residential support worker obtained collateral information from family. Evaluate clinical status response to treatment daily basis. Encourage participation in therapeutic groups and activities.
[2018-07-07] MEDS: lamoTRIgine 100 MG TAB PO SCH (20:23)
[2018-07-08] MEDS: LISINOPRIL 20 MG TAB PO SCH (08:30)
[2018-07-08] MEDS: CITALOPRAM HYDROBROMIDE 20 MG TAB PO SCH (08:30)
[2018-07-08] MEDS: LORazepam 1 MG TAB PO SCH ×3 (08:30→21:14)
[2018-07-08] MEDS: LITHIUM CARBONATE ER 450 MG TABLET.ER PO SCH ×2 (08:30→21:14)
[2018-07-08 09:55] LABS: HCT 43.1 % (39.0-53.0); HGB 14.1 gm/dL (13.0-17.5); MCH 30.1 pg (25.0-35.0); MCHC 32.7 g/dL (31.0-37.0); MCV 91.8 fL (80.0-100.0); Mean Platelet Volume 5.8; Platelet Count 354 k/uL (150-450); RBC 4.69 m/uL (4.30-5.90); RDW 12.2 % (11.5-15.5); WBC 9.8 k/uL (3.8-10.6)
[2018-07-08 10:05] LABS: Calcium 11.9 mg/dL (8.4-10.2); Potassium 4.9 mmol/L (3.5-5.1)
[2018-07-08 11:29] LABS: Hemoglobin A1C 4.8 % (4.0-6.0)
[2018-07-08 11:49] LABS: Vitamin D 25 Hydroxy 27.6 ng/mL (30.0-100.0)
[2018-07-08 12:20] LABS: Parathyroid Hormone Intact 118.5 pg/mL (14.0-72.0)
[2018-07-08] MEDS: CHOLECALCIFEROL 1,000 UNIT TAB PO SCH (12:40)
--- NOTE | 2018-07-08 16:06 | P.PN ---
Progress Note - Text Progress Note Date: 07/08/18 Clinical Problems: Bipolar disorder current episode depressed without psychotic features, generalized anxiety disorder with panic attacks, memory impairment, hyperparathyroidism with hypercalcemia, suicidal ideation Interim history: I reviewed the medical record, interviewed the patient and discuss his treatment and treatment plan during team meeting. He reported slight decrease of anxiety with Ativan 1 mg 3 times a day. He was able to sleep some last night. He perseverated on the severity of anxiety and his inability to function as a result of the anxiety. He does not perceive himself as depressed. He continues to have thoughts of suicide but did not express a clear suicide plan or intent. We discussed treatment options and he agreed to an increase in the dose of Celexa rather than a change to a different antidepressant. I spoke with the medicine senior information security consultant. She stated that the results of PTH was consistent with primary hyperparathyroidism. The radionucleotide parathyroid study is pending the results of the 24-hour urine calcium. The senior information security consultant suspects this the anxiety symptoms may be related to the primary hyperparathyroidism and hypercalcemia. We discussed a referral for ECT if his depression and anxiety symptoms do not remit. He gave permission for me to speak with his about his treatment history. Mental status exam: He presented as a disheveled appearing but casually groomed 58-year-old male. He made eye contact and appeared to the and tends to the interview. He appeared sedated. He had a blunted facial expression. He showed psychomotor retardation. He has slight hand tremor. He was tense and nervous throughout the interview. He describes suicidal ideation and wishes. He continues expressed depressive cognitions such as hopelessness, helplessness and worthlessness. He denied ideas reference, paranoid ideation or delusional thoughts. His thinking was abstract and associations were coherent and logical. He denied hallucinations. Assessment: His experience some reduction of anxiety symptoms with the current dose of Ativan but has also experienced sedation and mental clouding. The medical evaluation for hypercholesterolemia and showing primary hyper parathyroidism. Plan: Continue inpatient psychiatric hospitalization. Continue lithium carbonate 450 mg twice a day and Lamictal 200 mg at bedtime. Increase Celexa 30 mg daily. Coordinate evaluation of hypercalcemia hyperparathyroid state with the medicine senior information security consultant. Continue Ativan 1 mg 3 times a day but consider switching to clonazepam. Encourage participation in therapeutic groups and activities. Evaluate clinical status response to treatment daily basis.
--- NOTE | 2018-07-08 19:38 | P.PN ---
Subjective Progress Note Date: 07/08/18 Principal diagnosis: anxiety Patient is a 58-year-old male admitted to the mental health unit for depression and anxiety. His laboratory analysis from April 2018 were reviewed which showed slightly elevated PTH at 101 and normal vitamin D level. Repeat labs are currently pending. Ultrasound of the neck was within normal limits. Patient seen and examined. Denies any chest pain, shortness of breath, nausea, or vomiting. Still feeling slightly sedated from Ativan. No history of hyperparathyroidism. Has never seen an manager forensic in the past. Objective - Vital Signs Vital signs: Vital Signs Temp 98.1 F 07/08/18 06:32 Pulse 63 07/08/18 14:00 Resp 16 07/08/18 14:00 BP 124/68 07/08/18 14:00 Pulse Ox 98 07/06/18 14:18 - Exam General: non toxic, no distress, appears at stated age Derm: warm, dry Head: atraumatic, normocephalic, symmetric Eyes: EOMI, no lid lag, anicteric sclera Psych: Alert, oriented, appropriate affect - Labs CBC & Chem 7: 07/08/18 09:10 07/08/18 09:10 Labs: Abnormal Lab Results - Last 24 Hours (Table) 07/07/18 07/08/18 Range/Units 07:45 09:10 Sodium 135 L (137-145) mmol/L BUN 25 H (9-20) mg/dL Glucose 104 H (74-99) mg/dL Calcium 11.9 H (8.4-10.2) mg/dL Vitamin D 25-Hydroxy 27.6 L (30.0-100.0) ng/mL PTH Intact 118.5 H (14.0-72.0) pg/mL Assessment and Plan Assessment: Hypercalcemia with Possible hyperparathyroidism -Await repeat vitamin D level, PTH, and phosphorus level -Patient is on chronic lithium use which may be associated with this -Consult nephrology for further recommendations -24-hour urinary calcium currently in progress TAMMIE with no history of CKD -Encourage oral fluid intake -Hold lisinopril and follow blood pressures Anxiety and depression -Your psych management -Case discussed with Dr. Kent
[2018-07-08] MEDS: lamoTRIgine 100 MG TAB PO SCH (21:15)
[2018-07-09] MEDS: LITHIUM CARBONATE ER 450 MG TABLET.ER PO SCH (08:30)
[2018-07-09] MEDS: CITALOPRAM HYDROBROMIDE 10 MG TAB PO SCH (08:30)
[2018-07-09] MEDS: LORazepam 1 MG TAB PO SCH (08:30)
[2018-07-09] MEDS ORDERED: SODIUM CHLORIDE 0.9% 250 ML with PAMIDRONATE 60 MG IV ONE ×2 (09:16)
[2018-07-09] MEDS: CINACALCET 30 MG TAB PO SCH (10:24)
[2018-07-09 11:25] LABS: Phosphorus 2.8 mg/dL (2.5-4.5); Potassium 4.5 mmol/L (3.5-5.1)
[2018-07-09] MEDS: CHOLECALCIFEROL 1,000 UNIT TAB PO SCH (12:57)
[2018-07-09 15:00] LABS: Calcium 24 Hour,Urine 495.8 mg/24 hr
--- NOTE | 2018-07-09 15:58 | P.PN ---
Progress Note - Text Progress Note Date: 07/09/18 Clinical Problems: Bipolar disorder most recent episode depressed severe without psychotic features, hypercalcemia with hyperparathyroidism Interim history: I reviewed the medical record, interviewed the patient and discussed his treatment and treatment plan during team meeting. Medical consultation appreciated. He is less anxious with the current dose of lorazepam but is experiencing increased sedation and mental clouding. He denied changes in his mood since admission to the unit. The social media campaign manager spoke to his . The reported that the patient's outpatient psychiatrist had discussed both ECT and rTMS but the patient opted to pursue medication treatment of his depressive episode. We discussed the possible neuropsychological effects of hypercalcemia and hyperparathyroidism. We also discussed a referral for ECT and he consented to a referral. I explained that the referring facility will probably want us to complete our evaluation of his hyperparathyroidism. In the meantime we should taper medications that are contraindicated for ECT including lithium, lorazepam and Lamictal. The repeat PTH was 118.5. Ultrasound of the thyroid completed. Mental status exam: He presented as a somewhat disheveled appearing and sedated 58-year-old male who was pleasant on approach. He made eye contact and attended to the interview. He had a blunted and depressed facial expression. He showed marked psychomotor retardation but no abnormal movements. Her speech was not spontaneous and had decreased rate, rhythm and volume. His affect was depressed and not reactive. He denied suicidal ideation or wishes. He denied ideas reference, paranoid ideation or delusions. His thinking was abstract and his thinking was sluggish. He denied hallucinations and did not appear to responding to internal stimuli Assessment: He continued show severe symptoms of depression. Anxiety has decreased with the current dose of lorazepam but he is experiencing marked sedation and mental clouding. He has tentatively consented to a referral for ECT. Plan: Continue inpatient hospitalization. Medical evaluation is management per data processing consultant. Decrease lorazepam to 0.5 mg 4 times a day. Decrease lithium to 450 mg and continue to taper. Decrease Lamictal to 100 mg daily and continue to taper. Discuss treatment with second-generation antipsychotic such as olanzapine, Seroquel, trazodone or Geodon. Begin the process of referral for ECT. Encourage participation in therapeutic groups and activities. Evaluate clinical status response to treatment on a daily basis.
[2018-07-09] MEDS: LORazepam 0.5 MG TAB PO SCH ×2 (17:52→21:15)
--- NOTE | 2018-07-09 20:47 | CONS ---
CONSULTATION REASON FOR CONSULT: Hypercalcemia. HISTORY OF PRESENT ILLNESS: Patient is a 58-year-old male who has a history of bipolar disorder. He was admitted to the hospital for worsening psychiatric status and suicidal ideation. He is maintained on lithium. The patient states that he has had a history of high calcium for past few months. Patient denies use of any calcium supplements. His calcium was 11.9 and PTH was elevated at 118.5. Vitamin D level was 27.6. The serum creatinine has been at 1.2 mg/dL. Previous creatinine has been at about 1.1 to 1.0 mg/dL all the way back to 2013. PAST MEDICAL HISTORY: Hypertension and bipolar disorder. PAST SURGICAL HISTORY: None. SOCIAL HISTORY: Negative for smoking, drug abuse or alcohol abuse. MEDICATIONS: Medications at home prior to admission included Celexa and Zestril, lithium, Lamictal. ALLERGIES: INCLUDE XANAX, ABILIFY, AND ZYPREXA. REVIEW OF SYSTEMS: As per HPI. Other systems negative. EXAMINATION: Patient is currently comfortable, awake. He is not in any acute distress. He is alert and oriented x3. Blood pressure this morning was 137/67, heart rate 53 per minute. He is afebrile. Examination of the heart S1, S2. Examination lungs bilateral breath sounds are heard. Abdomen is soft, nontender. Examination lower extremities shows no evidence of edema. [employer] exam shows patient moving all 4 extremities. LAB: Show sodium 136, potassium 4.5, chloride 103, BUN 27, serum creatinine 1.24, calcium was 12.0, 24 hour urine calcium was 495. PTH is 118. ASSESSMENT: 1. Hypercalcemia secondary to primary hyperparathyroidism with significantly elevated PTH for a calcium of 11.9 and 12. The patient did have an ultrasound of the neck, which was mainly for the thyroid. No significant abnormality was noted in the parathyroid glands. However, this was just an ultrasound scan. The patient will need a nuclear scan for the hyperparathyroidism. Ideally, he should have a parathyroidectomy. However, we can use Sensipar which will help decrease the calcium and the PTH levels as well for now. The surgery can be discussed again later on down the road. I would also like to give a dose of pamidronate IV. However, the patient is not able to receive this medication on the psychiatric floor. Therefore, we will continue with the Sensipar for now. He will benefit from IV hydration as well. His serum creatinine is not significantly worse. Therefore, we can monitor his renal function for now and if his creatinine is further elevated and calcium is not improving, I will start him on normal saline. The patient can continue with the lithium for now. His lithium level was not elevated. Once his acute episode is better controlled, we can discuss regarding other medication options down the road for the bipolar disorder. 2. Hypertension, currently controlled. 3. Acute exacerbation of bipolar disorder with suicidal ideation on initial admission, currently improved. PLAN: Start Sensipar 30 mg daily. Repeat labs and if renal function is worse, we will start IV saline. The patient will need to consider parathyroidectomy down the road. I will also obtain a nuclear scan of his parathyroid glands due to identify possible adenoma. May continue with the lithium for now. Thank you for this consultation. We will continue to follow the patient with you during his hospitalization. MMODL / IJN: [id number] /
[2018-07-09] MEDS: lamoTRIgine 100 MG TAB PO SCH (21:15)
[2018-07-10] MEDS: LORazepam 0.5 MG TAB PO SCH ×3 (07:20→20:41)
[2018-07-10] MEDS: CINACALCET 30 MG TAB PO SCH (09:04)
[2018-07-10] MEDS: LITHIUM CARBONATE ER 450 MG TABLET.ER PO SCH (09:06)
[2018-07-10] MEDS: CITALOPRAM HYDROBROMIDE 10 MG TAB PO SCH (09:06)
[2018-07-10] MEDS: CHOLECALCIFEROL 1,000 UNIT TAB PO SCH (13:18)
--- NOTE | 2018-07-10 13:53 | P.PN ---
Subjective Patient is seen in follow-up for hypercalcemia. Calcium level is 12.0 this morning. He was started on Sensipar yesterday. He is noted to have an elevated parathyroid level as well as high urine calcium consistent with primary hyperparathyroidism he is currently undergoing nuclear thyroid scan. Denies chest pain or shortness of breath. Oral intake is fair. Vital signs are stable. General: The patient appeared well nourished and normally developed. HEENT: Head exam is unremarkable. Neck is without jugular venous distension. LUNGS: Lungs are clear to auscultation and percussion. Breath sounds decreased. HEART: Rate and Rhythm are regular. First and second heart sounds normal. No murmurs, rubs or gallops. ABDOMEN: Abdominal exam reveals normal bowel sounds. Non-tender and non- distended. No evidence of peritonitis. EXTREMITITES: No clubbing, cyanosis, or edema. Objective - Vital Signs Vital signs: Vital Signs Temp 98.1 F 07/10/18 06:32 Pulse 51 L 07/10/18 06:32 Resp 16 07/10/18 06:32 BP 130/67 07/10/18 06:32 Pulse Ox 98 07/06/18 14:18 Intake & Output 07/09/18 07/10/18 07/10/18 18:59 06:59 18:59 Intake Total 10 Output Total 1850 Balance -1850 10 Intake: IV 10 Invasive Line 1 10 Output: Urine 1850 - Labs CBC & Chem 7: 07/08/18 09:10 07/09/18 10:29 Labs: Abnormal Lab Results - Last 24 Hours (Table) 07/09/18 Range/Units 09:21 Ur 24 Hour Volume 1850 H (800-1800) mls Assessment and Plan Plan: Assessment: 1. Hypercalcemia secondary to primary hyperparathyroidism with elevated PTH, elevated calcium and high urine calcium. Started on Sensipar July 09. Calcium level 12.0 this morning. Unable to receive pamidronate in the psychiatry unit. 2. Benign hypertension. Controlled. 3. Bipolar disorder. Plan: Start normal saline at 100 mL an hour. Continue Sensipar 30 mg daily. Follow-up nuclear parathyroid scan. Will likely need parathyroidectomy down the road. Repeat electrolytes in the morning.
--- NOTE | 2018-07-10 14:52 | NM ---
EXAMINATION TYPE: NM parathyroid w/spect DATE OF EXAM: 07/10/2018 COMPARISON: Ultrasound 07/07/2018 HISTORY: 58-year-old male with hyperparathyroidism and hypercalcemia. TECHNIQUE: Following administration of 24.6 mCi Tc99m Sestamibi. Anterior projection images of the ne ck and chest were obtained 10 minutes and 3 hours post injection. SPECT images of the neck and chest were obtained and reconstructed in three axes. FINDINGS: Thyroid tracer washout: Delayed images demonstrate near-complete tracer washout from the thyroid. Parathyroid uptake: None. The two-hour delayed images do not demonstrate any focal abnormal persisten t uptake in the region of the parathyroid glands to suggest parathyroid adenoma. Normal uptake: There is physiological tracer uptake in the myocardium, liver, salivary glands, and th yroid gland. IMPRESSION: Normal parathyroid imaging study. Also, no evidence for mediastinal uptake to suggest mediastinal par athyroid adenoma.
[2018-07-10] MEDS: SODIUM CHLORIDE 0.9% 1,000 ML IV SCH (15:39)
--- NOTE | 2018-07-10 16:16 | P.PN ---
Progress Note - Text Progress Note Date: 07/10/18 Clinical Problems: Bipolar disorder most recent episode depressed severe without psychotic features, hypercalcemia with primary hyperparathyroidism Interim history: Reviewed the medical record, interviewed the patient and discuss his treatment and treatment plan during team meeting. Medical consultation appreciated. The patient completed a parathyroid scan today; results appreciated. He reported feeling less anxious but continues to feel tremulous, helpless and hopeless. Reports continued difficulty with concentration and mental focus. He is afraid that he will "never get better" and will always "be like this". He is unable to appreciate the small improvements that occurred substance admission; such as that he no longer feels the urge to pace constantly or is unable to sit still or sleep. He described improvement in sleep but feels fatigued during the day. The revenue cycle consultant began Sensipar 30 mg daily yesterday and ordered IV hydration today to lower his serum calcium. We discussed neurocognitive effects of elevated calcium. He is aware of primary hyperparathyroidism because his sister underwent a partial parathyroidectomy early this year for primary hyperparathyroidism. We postponed the family meeting due to the radio at times scanning today. rotary shear worker helper scheduled to meet with his tomorrow. We reviewed the treatment plan and the reason for tapering and discontinuing both lithium and Lamictal. We discussed alternatives to either mood stabilizer and he tentatively agreed to a trial of Seroquel. Mental status exam: He presented as a casually groomed 58-year-old male who was pleasant on approach. He made eye contact and attended the interview. He had a depressed facial expression. He was alert and oriented to person, place and time. He showed psychomotor retardation and was restless. He has slight leg tremor but no obvious hand tremor. However, tremulousness was present in his writing. His speech was spontaneous with decreased rate, rhythm and volume. His affect was depressed and not reactive. He denied suicidal ideation or wishes. He denied homicidal ideation. He continues expressed depressive cognitions including hopelessness, helplessness and worthlessness. He did not express psychotic symptoms such as ideas reference, paranoid ideation or delusions. His thinking was abstract and associations were coherent and logical. He did not appear to be responding to internal stimuli. Assessment: He continues to demonstrate severe symptoms of depression. His anxiety has decreased possibly due to measures to decrease serum calcium or the response to current psychopharmacology. He's been fully compliant with medications including evaluation and treatment of hypercalcemia. No evidence of parathyroid adenoma on the radionucleotide scan. Plan: Continue inpatient hospitalization. Continue safety precautions. Continue citalopram 30 mg daily and titrated according to clinical response and tolerance. Continue Lamictal 100 mg at bedtime and Lithobid 450 mg daily and continue to taper gradually. Decrease Ativan to 0.5 mg 3 times a day to reduce sedation. Collaborate with the medical accountant on evaluation and management of his hypercalcemia. Family meeting tentatively scheduled for 07/21/2018. Encourage participation in therapeutic groups and activities as tolerated. Evaluate clinical status response to treatment on a daily basis.
[2018-07-10] MEDS ORDERED: LOPERAMIDE 2 MG CAP PO PRN (18:38)
--- NOTE | 2018-07-10 18:50 | P.PN ---
Subjective Progress Note Date: 07/10/18 Principal diagnosis: anxiety Patient is a 58-year-old male admitted to the mental health unit for depression and anxiety. His laboratory analysis from April 2018 were reviewed which showed slightly elevated PTH at 101 and normal vitamin D level. Ultrasound of the neck was within normal limits. Patient found to have primary hyperparathyroidism. Patient seen and examined. C/O diarrhea. Had 2 loose but formed stools today. No nausea, no vomiting, no abdominal pain. No change in color such as green, white, or dark and tarry. He states this typically happens with his anxiety and if he does not take an Imodium it will progress to frequent watery stools. Objective - Vital Signs Vital signs: Vital Signs Temp 98.1 F 07/10/18 06:32 Pulse 55 L 07/10/18 14:00 Resp 16 07/10/18 14:00 BP 141/66 07/10/18 14:00 Pulse Ox 98 07/06/18 14:18 Intake & Output 07/09/18 07/10/18 07/10/18 18:59 06:59 18:59 Intake Total 20 Output Total 1850 Balance -1850 20 Intake: IV 20 Invasive Line 1 20 Output: Urine 1850 - Exam General: non toxic, no distress, appears at stated age Derm: warm, dry Head: atraumatic, normocephalic, symmetric Lungs: Clear to auscultation bilaterally, no accessory muscle use, no wheezing Cardiovascular: S1-S2 regular without murmurs/rubs/gallops Abdomen: Soft, nontender to palpation, nondistended, no palpable organomegaly Eyes: EOMI, no lid lag, anicteric sclera Psych: Alert, oriented, appropriate affect - Labs CBC & Chem 7: 07/08/18 09:10 07/09/18 10:29 Assessment and Plan Assessment: Diarrhea -Likely anxiety induced -Check CBC in a.m. -Monitor fever profile -As needed Imodium Primary hyperparathyroidism -Nephrology recommendations appreciated -Continue with Sensipar and IV fluids -Unable to administer pamidronate in the mental health unit -We will need parathyroidectomy -Repeat calcium level in a.m. TAMMIE with no history of CKD -Encourage oral fluid intake -Hold lisinopril and follow blood pressures Anxiety and depression -Your psych management
[2018-07-10] MEDS: lamoTRIgine 100 MG TAB PO SCH (20:41)
[2018-07-10] MEDS: hydrOXYzine PAMOATE 25 MG CAP PO PRN (22:18)
[2018-07-11] MEDS: LORazepam 2 MG/ML INJ IM PRN (00:06)
[2018-07-11] MEDS: SODIUM CHLORIDE 0.9% 1,000 ML IV SCH ×3 (01:33→21:31)
[2018-07-11] MEDS: LITHIUM CARBONATE ER 450 MG TABLET.ER PO SCH (08:06)
[2018-07-11] MEDS: CINACALCET 30 MG TAB PO SCH (08:06)
[2018-07-11] MEDS: CITALOPRAM HYDROBROMIDE 10 MG TAB PO SCH (08:06)
[2018-07-11] MEDS: LORazepam 0.5 MG TAB PO SCH ×3 (08:06→20:44)
[2018-07-11 08:58] LABS: Calcium 11.7 mg/dL (8.4-10.2); Magnesium 2.2 mg/dL (1.6-2.3); Potassium 4.9 mmol/L (3.5-5.1)
[2018-07-11] MEDS: CHOLECALCIFEROL 1,000 UNIT TAB PO SCH (12:27)
[2018-07-11] MEDS ORDERED: BACITRACIN OINT 1 EACH PACKET TOPICAL ONE (12:36)
[2018-07-11] MEDS: hydrOXYzine PAMOATE 25 MG CAP PO PRN (12:53)
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
--- NOTE | 2018-07-11 16:37 | PN ---
PROGRESS NOTE The patient is seen for followup for hypercalcemia secondary to primary hyperparathyroidism. The patient was started on Sensipar. He could not get IV pamidronate. He was also started on normal saline. Calcium today was down to 11.7. EXAMINATION: Patient is comfortable. Blood pressure was 153/70, heart rate 46 per minute. He is afebrile. Examination of the heart: S1, S2. Examination lungs: Decreased breath sounds bases. Abdomen is soft, nontender. Exam of lower extremities shows no significant edema. HYDRAULIC CORRUGATING MACHINE OPERATOR exam is grossly intact. LABS: Show sodium 137, potassium 4.9, serum creatinine 1.15, hemoglobin 11.7 g/dL. ASSESSMENT: 1. Acute kidney injury secondary to hypercalcemia, currently improved. The patient is maintained on normal saline at 100 mL an hour. 2. Hypercalcemia secondary to primary hyperparathyroidism with nuclear scan not showing any increased uptake on the parathyroid gland. The patient has been started on Sensipar, which we can continue for now. He will need further evaluation by Endocrinology and he will need evaluation for possible ectopic parathyroid gland as well. Currently, patient is not too keen on surgery. Therefore, we will continue with medical therapy with Sensipar and patient may continue with the lithium as well for now. 3. Bipolar disorder with acute exacerbation, currently improved and maintained in inpatient psych unit. 4. Possible chronic kidney disease. 5. Hypertension, currently controlled. PLAN: Try to get pamidronate if possible during this admission. This will buy us more time until Sensipar effect maximizes. Continue with Sensipar for now and patient will need followup with Endocrinology as outpatient. MMODL / IJN: [id number] /
--- NOTE | 2018-07-11 18:34 | CT ---
EXAMINATION TYPE: CT brain wo con DATE OF EXAM: 07/11/2018 COMPARISON: None HISTORY: Workup for ECT. CT DLP: 1144 mGycm Automated exposure control for dose reduction was used. FINDINGS: Ventricles and sulci appear normal. There is no mass effect nor midline shift. There is no sign of in tracranial hemorrhage. The calvarium is intact. IMPRESSION: NEGATIVE CT SCAN OF THE BRAIN.
--- NOTE | 2018-07-11 20:34 | XR ---
EXAMINATION TYPE: XR chest 2V DATE OF EXAM: 07/11/2018 COMPARISON: 10/06/2014 HISTORY: Physical exam TECHNIQUE: Frontal and lateral views of the chest are obtained. FINDINGS: Heart and mediastinum are normal. Lungs are clear. Diaphragm is normal. Bony thorax appear s normal. IMPRESSION: Normal chest. No change.
[2018-07-11] MEDS: QUEtiapine 100 MG TAB PO SCH (20:44)
[2018-07-11] MEDS: lamoTRIgine 100 MG TAB PO SCH (20:44)
[2018-07-12] MEDS: SODIUM CHLORIDE 0.9% 1,000 ML IV SCH ×2 (07:09→18:37)
[2018-07-12] MEDS: LITHIUM CARBONATE ER 450 MG TABLET.ER PO SCH (08:07)
[2018-07-12] MEDS: LORazepam 0.5 MG TAB PO SCH ×3 (08:07→21:06)
[2018-07-12] MEDS: CITALOPRAM HYDROBROMIDE 10 MG TAB PO SCH (08:07)
[2018-07-12] MEDS: CINACALCET 30 MG TAB PO SCH (08:08)
[2018-07-12] MEDS: hydrOXYzine PAMOATE 25 MG CAP PO PRN (08:26)
[2018-07-12 08:33] LABS: Anion Gap 7 mmol/L; Blood Urea Nitrogen 19 mg/dL (9-20); Calcium 10.8 mg/dL (8.4-10.2); Carbon Dioxide 24 mmol/L (22-30); Chloride 107 mmol/L (98-107); Glucose 96 mg/dL (74-99); Potassium 4.8 mmol/L (3.5-5.1); Sodium 138 mmol/L (137-145)
--- NOTE | 2018-07-12 12:21 | P.PN ---
Subjective Progress Note Date: 07/12/18 Principal diagnosis: anxiety Patient is a 58-year-old male admitted to the mental health unit for depression and anxiety. His laboratory analysis from April 2018 were reviewed which showed slightly elevated PTH at 101 and normal vitamin D level. Ultrasound of the neck was within normal limits. Patient found to have primary hyperparathyroidism. Patient was trialed on IV fluid infusion and started on Sensipar by nephrology. Underwent nuclear uptake scan which did not show any abnormalities and the parathyroid glands. Will need endocrinology outpatient follow-up and likely surgery for definitive treatment. Calcium level continued to be high despite the aforementioned treatment he was therefore given a dose of pamidronate on 07/11. He will also need further evaluation for ectopic parathyroid. Patient seen and examined. He denies any chest pain, shortness of breath, nausea, vomiting, or diarrhea. He still has decreased appetite. Patient still having increased anxiety. He is requesting change in his medication I have discussed with the patient that this can only be done by his psychiatrist. Objective - Vital Signs Vital signs: Vital Signs Temp 97.9 F 07/12/18 06:16 Pulse 51 L 07/12/18 06:16 Resp 16 07/12/18 06:16 BP 127/60 07/12/18 06:16 Pulse Ox 98 07/11/18 12:53 - Exam General: non toxic, no distress, appears at stated age Derm: warm, dry Head: atraumatic, normocephalic, symmetric Lungs: Clear to auscultation bilaterally, no accessory muscle use, no wheezing Cardiovascular: S1-S2 regular without murmurs/rubs/gallops Abdomen: Soft, nontender to palpation, nondistended, no palpable organomegaly Psych: Alert, oriented, appropriate affect - Labs CBC & Chem 7: 07/08/18 09:10 07/12/18 08:01 Labs: Abnormal Lab Results - Last 24 Hours (Table) 07/12/18 Range/Units 08:01 Calcium 10.8 H (8.4-10.2) mg/dL Assessment and Plan Assessment: Primary hyperparathyroidism - s/p pamidronate -Nephrology recommendations appreciated -Continue with Sensipar and IV fluids but decreased to 50 -We will need outpatient endocrine evaluation -Repeat calcium level in a.m. TAMMIE with no history of CKD, improved -Encourage oral fluid intake -off lisinopril, follow blood pressures Anxiety and depression -Your psych management Diarrhea, resolved
--- NOTE | 2018-07-12 13:08 | P.PN ---
Progress Note - Text Progress Note Date: 07/11/18 Hospitalist interval note: Patient continues to have elevated calcium levels despite IV fluid resuscitation and Sensipar. This was discussed with nephrology in the morning on 07/11, patient will benefit from pamidronate infusion. I spoke with Mary the dip unit operator and informed her that patient will need this medication. We have been able to arrange for him to receive this at the outpatient [facility]. He is currently undergoing infusion and is not able to be seen.
[2018-07-12] MEDS: LISINOPRIL 5 MG TAB PO SCH (13:12)
[2018-07-12] MEDS: CHOLECALCIFEROL 1,000 UNIT TAB PO SCH (13:12)
--- NOTE | 2018-07-12 13:20 | ECHOF ---
Referral Reason:Pre ECT, R/O Structural Heart disease MEASUREMENTS -------- HEIGHT: 182.9 cm WEIGHT: 83.9 kg BP: RVIDd: 3.6 cm (< 3.3) IVSd: 1.1 cm (0.6 - 1.1) LVIDd: 4.1 cm (3.9 - 5.3) LVPWd: 1.0 cm (0.6 - 1.1) IVSs: 1.9 cm LVIDs: 1.1 cm LVPWs: 1.8 cm LAESV Index (A-L): 17.99 ml/m Ao Diam: 3.0 cm (2.0 - 3.7) AV Cusp: 2.3 cm (1.5 - 2.6) LA Diam: 4.3 cm (2.7 - 3.8) MV EXCURSION: 17.354 mm (> 18.000) MV EF SLOPE: 111 mm/s (70 - 150) EPSS: 0.4 cm MV E Ignacio: 1.03 m/s MV DecT: 264 ms MV A Ignacio: 1.17 m/s MV E/A Ratio: 0.88 RAP: 5.00 mmHg RVSP: 16.62 mmHg FINDINGS -------- Sinus rhythm. This was a technically good study. The left ventricular size is normal. Left ventricular wall thickness is normal. Overall left vent ricular systolic function is normal with, an EF between 55 - 60 %. The right ventricle is mildly enlarged. Normal LA size by volume 22+/-6 ml/m2. The right atrium is normal in size. Aortic valve is trileaflet and is mildly thickened. The mitral valve leaflets are mildly thickened. Mild mitral regurgitation is present. Mild tricuspid regurgitation present. The right ventricular systolic pressure, as measured by Doppl er, is 16.62mmHg. Pulmonic valve appears structurally normal. The aortic root size is normal. Normal inferior vena cava with normal inspiratory collapse consistent with estimated right atrial pre ssure of 5 mmHg. The pericardium is normal. CONCLUSIONS -------- 1. Sinus rhythm. 2. This was a technically good study. 3. The left ventricular size is normal. 4. Left ventricular wall thickness is normal. 5. Overall left ventricular systolic function is normal with, an EF between 55 - 60 %. 6. The right ventricle is mildly enlarged. 7. Normal LA size by volume 22+/-6 ml/m2. 8. The right atrium is normal in size. 9. Aortic valve is trileaflet and is mildly thickened. 10. The mitral valve leaflets are mildly thickened. 11. Mild mitral regurgitation is present. 12. Mild tricuspid regurgitation present. 13. The right ventricular systolic pressure, as measured by Doppler, is 16.62mmHg. 14. Pulmonic valve appears structurally normal. 15. The aortic root size is normal. 16. Normal inferior vena cava with normal inspiratory collapse consistent with estimated right atrial pressure of 5 mmHg. 17. The pericardium is normal. ASPHALT ROLLER OPERATOR: Shannan Sharma RDCS
--- NOTE | 2018-07-12 14:21 | P.PN ---
Progress Note - Text Progress Note Date: 07/12/18 Interval history: Patient seen in cross coverage today. He is found in his room lying in bed. He currently has IV in. He reports that his calcium level was too high. He describes that his mood is feeling tense today. He seems to describe a lot of anxiety. He does not voice any adverse psychotropic medication side effects. He makes reference to the Vistaril not working for him. He makes reference to wanting something else that could help him, after the session was over did discuss with the patient that he also has Ativan ordered as needed for anxiety. Mental status exam: He is alert and cooperative with the interview. His affect is restricted. His mood he described as tense. He admits to some on and off thoughts of suicide, relays he feels safe here in the hospital. He does not voice any thoughts of harm to others. I do not note any active evidence of psychosis. He does not show any agitation. Plan: We'll maintain current psychotropic medications. Continue to monitor his ongoing response to treatment. We'll continue to cover this patient through the weekend. Continue to monitor regarding any thoughts of suicide. He was instructed to go to staff if needed.
[2018-07-12] MEDS: LORazepam 2 MG/ML INJ IM PRN (14:28)
[2018-07-12] MEDS ORDERED: SODIUM CHLORIDE 0.9% 1,000 ML IV SCH (21:00)
[2018-07-12] MEDS: QUEtiapine 100 MG TAB PO SCH (21:06)
[2018-07-12] MEDS: lamoTRIgine 100 MG TAB PO SCH (21:06)
--- NOTE | 2018-07-12 22:11 | PN ---
PROGRESS NOTE Patient is seen for followup for hypercalcemia and acute kidney injury. This morning he is complaining of some anxiety. The patient remains on normal saline. He did receive the IV pamidronate yesterday. Calcium is down to 10.8 mg/dL today. PHYSICAL EXAMINATION: On examination today, patient is comfortable, awake. He is not in any acute distress. Blood pressure 125/76, heart rate 65 per minute. He is afebrile. Examination of the heart S1, S2. Examination lungs bilateral breath sounds are heard. Abdomen is soft, nontender. Examination lower extremities shows no evidence of edema. RECREATION ATTENDANT exam is grossly intact. LABS: Sodium 138, potassium 4.8, BUN 19, serum creatinine 1.04, serum calcium 10.8. ASSESSMENT: 1. Hypercalcemia secondary to hyperparathyroidism, maintained on Sensipar status post pamidronate IV. We can decrease the IV fluids to 50 mL an hour and then likely discontinue it tomorrow. 2. Acute kidney injury secondary to hypercalcemia, currently improved. 3. Bipolar disorder with acute exacerbation, maintained on lithium. PLAN: Decrease saline to 50 mL an hour. Continue with Sensipar. The patient will need followup as outpatient as well as an endocrinology followup. He will benefit from parathyroidectomy. However, he probably has an ectopic hyperactive parathyroid gland. MMODL / IJN: [id number] /
--- NOTE | 2018-07-12 22:29 | CONS ---
CONSULTATION This is a 58-year-old gentleman with a known history of hypertension, bipolar disorder with anxiety and depression who has been admitted to the hospital with suicidal intention and has severe depression and is being considered for electroconvulsive therapy. I was asked to see him prior to electroconvulsive therapy to assess his cardiac status. The patient is a reasonably decent historian. He indicates to me that he does quite a bit of physical activity; biking, swimming and kayaking without any problems. He has no limitations in terms of exertional chest pain or shortness of breath. He has done this up until a month or so ago, but since then he has not been doing much activity. About a year and a half or 2 years ago, he had a stress test through [facility] through his primary care physician, which was normal per patient. He takes Zestril and lithium carbonate and Lamictal. He also takes Celexa and vitamin B12 injections. He has no limitation in terms of physical capacity. He has no chest discomfort, shortness of breath, palpitations, syncope or near- syncope with his day-to-day activities. PAST MEDICAL HISTORY: 1. Bipolar disorder. 2. Hypertension. 3. Admitted with significant depression and suicidal intention. MEDICATIONS AT HOME: Include: 1. Rockwood carbonate 450 mg b.i.d. 2. Zestril 20 mg daily. 3. [place]wood additional 150 mg at bedtime. 4. Celexa 20 mg daily. 5. B12 injections every month of 1000 mcg. 6. Lamictal 200 mg at bedtime. ALLERGIES: He is allergic to ABILIFY, ZYPREXA, XANAX. EXAMINATION: His blood pressure is 152/78, pulse rate is about 60 per minute. HEENT: Unremarkable. Fundus was not examined by me. Neck is supple. There is no JVD. I do not hear a carotid bruit. There is no thyromegaly. Heart reveals S1, S2 heard normally. No significant murmurs are detected. Lungs are clear. Abdomen is soft, nontender. Lower extremities reveal palpable pulses. No edema. Central nervous system is normal. EKG revealed sinus mechanism, nonspecific ST abnormality, J-point prominence. No acute changes. IMPRESSION: 1. Bipolar disorder. 2. Hypertension under good control. 3. Patient is being considered for electroconvulsive therapy. 4. Hypercalcemia, which is being addressed by Dr. Hull from a Nephrology standpoint and the last calcium has come down to 10.8. The patient probably has primary hyperparathyroidism. RECOMMENDATIONS: I have reviewed his electrolytes. His calcium level has improved to 10.8. His potassium is 4.8 and magnesium yesterday was 2.2. His electrolytes are good. I do not see any contraindication for the proposed electroconvulsive therapy. Echocardiogram was reviewed, revealed a normal systolic function without any significant abnormalities. This patient can go ahead with electroconvulsive therapy without any contraindication. I would ensure and make sure the calcium levels are optimized probable prior to the procedure and also recheck magnesium and potassium levels prior to the electroconvulsive therapy for his major depression. Will resume Lisinopril at 5mg daily. Please call me for questions. Thank you very much for the consult. PHILL / HAYDEE: [id number] / SUSIE
[2018-07-13] MEDS: LORazepam 0.5 MG TAB PO SCH ×3 (07:39→21:00)
[2018-07-13] MEDS: hydrOXYzine PAMOATE 25 MG CAP PO PRN (07:39)
[2018-07-13] MEDS: CINACALCET 30 MG TAB PO SCH (07:43)
[2018-07-13] MEDS: CITALOPRAM HYDROBROMIDE 10 MG TAB PO SCH (07:43)
[2018-07-13] MEDS: LITHIUM CARBONATE ER 450 MG TABLET.ER PO SCH (07:44)
[2018-07-13] MEDS: LISINOPRIL 5 MG TAB PO SCH (07:44)
--- NOTE | 2018-07-13 11:06 | P.PN ---
Subjective Progress Note Date: 07/13/18 Principal diagnosis: anxiety Patient is a 58-year-old male admitted to the mental health unit for depression and anxiety. His laboratory analysis from April 2018 were reviewed which showed slightly elevated PTH at 101 and normal vitamin D level. Ultrasound of the neck was within normal limits. Patient found to have primary hyperparathyroidism. Patient was trialed on IV fluid infusion and started on Sensipar by nephrology. Underwent nuclear uptake scan which did not show any abnormalities and the parathyroid glands. Will need endocrinology outpatient follow-up and likely surgery for definitive treatment. Calcium level continued to be high despite the aforementioned treatment he was therefore given a dose of pamidronate on 07/11. He will also need further evaluation for ectopic parathyroid. Patient seen and examined. He continues to deny any chest pain, shortness of breath, nausea, vomiting, or diarrhea. His appetite is slightly better still with increased anxiety. Objective - Vital Signs Vital signs: Vital Signs Temp 98.2 F 07/13/18 00:05 Pulse 55 L 07/13/18 07:52 Resp 16 07/13/18 07:52 BP 150/68 07/13/18 07:52 Pulse Ox 100 07/13/18 07:52 - Exam General: non toxic, no distress, appears at stated age Derm: warm, dry Head: atraumatic, normocephalic, symmetric Lungs:decreased bs b/l, no accessory muscle use, no wheezing Cardiovascular: S1-S2 regular without murmurs/rubs/gallops Abdomen: Soft, nontender to palpation, nondistended, no palpable organomegaly Psych: Alert, oriented, appropriate affect - Labs CBC & Chem 7: 07/08/18 09:10 07/12/18 08:01 Assessment and Plan Assessment: Primary hyperparathyroidism - s/p pamidronate -Nephrology recommendations appreciated -Await AM labs if Ca improved thne D/C IVF. -We will need outpatient endocrine evaluation -Repeat calcium level in a.m. TAMMIE with no history of CKD, resolved -Encourage oral fluid intake -off lisinopril, follow blood pressures Anxiety and depression -Your psych management Diarrhea, resolved
[2018-07-13 11:39] LABS: Calcium 10.4 mg/dL (8.4-10.2); Potassium 4.4 mmol/L (3.5-5.1)
[2018-07-13] MEDS: CHOLECALCIFEROL 1,000 UNIT TAB PO SCH (12:00)
--- NOTE | 2018-07-13 14:31 | P.PN ---
Progress Note - Text Progress Note Date: 07/13/18 Interval history: Patient seen in cross coverage today. He describes feeling a lot of anxiety. He feels like his anxiety is more of an issue right now than depression. He does talk about looking at ECT treatment. He says his visited yesterday. He describes difficulty with focus. Mental status exam: He is alert and cooperative. His affect is restricted. His mood appears depressed. He admits to some on and off thoughts of suicide but reports he feels safe here in the hospital. He does not voice any thoughts of harm to others. No evidence of active psychosis or agitation. Plan: Patient will be maintained on current treatment regimen. Continue to monitor for any adverse psychotropic medication side effects and monitor regarding suicidal ideations.
--- NOTE | 2018-07-13 16:19 | PN ---
PROGRESS NOTE The patient is seen for followup for hypercalcemia. We decreased his IV fluids yesterday. Patient did receive 1 dose of pamidronate. He states his anxiety is slightly improved. Denies any significant complaints. PHYSICAL EXAMINATION: Blood pressure was 150/68, heart rate 55 per minute. He is afebrile. Examination of the heart S1, S2. Examination lungs bilateral breath sounds are heard. Abdomen is soft, nontender. Examination lower extremities shows no significant edema. F[employer] exam is grossly intact. LABS: Labs show sodium of 139, potassium 4.4, serum creatinine 1.07, calcium is down to 10.4. ASSESSMENT: 1. Acute kidney injury associated with hypercalcemia, currently improved. 2. Hypercalcemia associated with primary hyperparathyroidism, status post pamidronate. Currently maintained on Sensipar p.o. with improving calcium levels. The patient will need followup as outpatient. He will need to see Endocrine also and down the road we will need to switch the lithium to another agent. 3. Chronic kidney disease, possibly related to chronic interstitial nephropathy versus nephrosclerosis. Baseline creatinine appears to be around [address] to 2013. MMODL / IJN: [id number] /
[2018-07-13] MEDS: lamoTRIgine 100 MG TAB PO SCH (21:00)
[2018-07-13] MEDS: QUEtiapine 100 MG TAB PO SCH (21:09)
[2018-07-14 06:34] VITALS: TEMP 97.6
[2018-07-14] MEDS: CINACALCET 30 MG TAB PO SCH (08:09)
[2018-07-14] MEDS: LISINOPRIL 5 MG TAB PO SCH (08:09)
[2018-07-14] MEDS: CITALOPRAM HYDROBROMIDE 10 MG TAB PO SCH (08:09)
[2018-07-14] MEDS: LORazepam 0.5 MG TAB PO SCH ×2 (08:09→15:43)
[2018-07-14 08:21] VITALS: BP 137/67; PULSE 58; RESP 18
[2018-07-14] MEDS: hydrOXYzine PAMOATE 25 MG CAP PO PRN (09:28)
--- NOTE | 2018-07-14 10:12 | P.PN ---
Subjective Progress Note Date: 07/14/18 Principal diagnosis: anxiety Patient is a 58-year-old male admitted to the mental health unit for depression and anxiety. His laboratory analysis from April 2018 were reviewed which showed slightly elevated PTH at 101 and normal vitamin D level. Ultrasound of the neck was within normal limits. Patient found to have primary hyperparathyroidism. Patient was trailed on IV fluid infusion and started on Sensipar by nephrology. Underwent nuclear uptake scan which did not show any abnormalities and the parathyroid glands. He will need further evaluation for ectopic parathyroid and endocrinology outpatient follow-up. Likely with surgery for definitive treatment. Calcium level continued to be high despite the aforementioned treatment he was therefore given a dose of pamidronate on 07/11 and his calcium level has been dropping. IV fluids stopped on 07/13. Patient seen and examined. He denies SOB or chest pain. Still with anxiety. Up and walking in the halls. Objective - Vital Signs Vital signs: Vital Signs Temp 97.6 F 07/14/18 06:32 Pulse 58 L 07/14/18 08:20 Resp 18 07/14/18 08:20 BP 137/67 07/14/18 08:20 Pulse Ox 98 07/13/18 20:57 Intake & Output 07/13/18 07/14/18 07/14/18 18:59 06:59 18:59 Weight 84.8 kg - Exam General: non toxic, no distress, appears at stated age Derm: warm, dry Head: atraumatic, normocephalic, symmetric Psych: Alert, oriented, appropriate affect - Labs CBC & Chem 7: 07/08/18 09:10 07/13/18 11:07 Labs: Abnormal Lab Results - Last 24 Hours (Table) 07/13/18 Range/Units 11:07 Calcium 10.4 H (8.4-10.2) mg/dL Assessment and Plan Assessment: Primary hyperparathyroidism - s/p pamidronate 07/11 -Nephrology recommendations appreciated -repeat CA levelin in AM -We will need outpatient endocrine evaluation and eval for ectopic parathyroid. Possible need for surgery for definitive treatment TAMMIE with no history of CKD, resolved -Encourage oral fluid intake -off lisinopril, follow blood pressures Anxiety and depression -Your psych management - Cleared by cardio for ECT with improved Ca level - Currently being evaluated by [facility] for transfer for ECT. Diarrhea, resolved
[2018-07-14] MEDS: CHOLECALCIFEROL 1,000 UNIT TAB PO SCH (12:11)
--- NOTE | 2018-07-14 14:44 | P.DS ---
Providers Date of admission: 07/06/18 14:04 Attending physician: Junito Kent MD Consults: 07/06/18 14:34 Consult Physician Routine Consulting Provider: Raf Ellison Consult Reason/Comments: H&P for mental health admission Do you want consulting provider notified?: Yes 07/08/18 15:54 Consult Physician Routine Consulting Provider: Tommie Bolton Consult Reason/Comments: hypercalcemia, concern for hyperparathyroidism Do you want consulting provider notified?: Yes 07/11/18 13:17 Consult Physician Routine Consulting Provider: Chato Ruiz Consult Reason/Comments: clearance for ECT Do you want consulting provider notified?: Yes Primary care physician: Adryan Mann MD - Discharge Diagnosis(es) (1) Bipolar disorder, current episode depressed, severe, without psychotic features Current Visit: Yes Status: Acute Priority: High (2) Generalized anxiety disorder with panic attacks Current Visit: Yes Status: Chronic Priority: High (3) Memory impairment Current Visit: Yes Status: Chronic Priority: Medium (4) Hypercalcemia Current Visit: Yes Status: Chronic Priority: Medium (5) Suicidal ideation Current Visit: Yes Status: Acute Priority: Medium Hospital Course: The patient is a 58-year-old male who presented to the psychiatric unit voluntarily with complaints of increasing anxiety, panic attacks and suicidal ideation with plan to hang himself. Apparently his son and recognizes severity of his distress and prevented him from following through with his suicidal thoughts. He has a well-established diagnosis of a bipolar disorder and a strong family history of bipolar illness and mood disorders (he has 5 brothers with the diagnoses of bipolar disorder and his grandmother was treated with ECT for severe depression). According to his family, he is been unwell for at least one year. He has been working aggressively with his outpatient psychiatrist who has gone through several medication changes without successfully improving his mood altering the course of his illness. His psychiatrist, Dr. Lundberg, consulted with Dr. Ralph who recommended a referral for a ECT or TMS. The patient had declined both treatments opting for medical management. However, during this hospitalization and after a family meeting with his he agreed to the referral for ECT. His hospital stay was complicated by elevated calcium and the medical evaluation for the elevated calcium. In April 2018 he had a PTH that was elevated at 101 with a normal vitamin D level. Ultrasound of his neck was normal. After our medical evaluation he was diagnosed with her primary hyperparathyroidism (note that his sister recently had surgery for primary hyperparathyroidism). He received IV fluid infusion on the psychiatric unit and was started on Sensipar by nephrology service. He underwent nuclear uptake scan which did not show any abnormalities of the parathyroid glands. Calcium levels continued to be high despite the aforementioned treatment and he was therefore given a dose of pamidronate on 07/11/2018 and his calcium level decreased. IV fluids were stopped on 07/13/18. He will need further evaluation for ectopic parathyroid and likely require surgery for definitive treatment. In preparation for the transfer ECT we tapered and discontinued lithium. We decreased Lamictal from 200 mg to 100 mg daily and plans to reduce the dose to 50 mg daily on 07/15/2018. We tapered and discontinued chronic treatment with clonazepam and treated his anxiety with lorazepam. We treated her depression with increasing doses of citalopram. We completed the [facility] Cognitive Assessment. His total score was 24/30. Normal score is considered greater than 26. She showed marked impairment in delayed recall. He had no impairment in visual spatial/is 60 functioning, naming, attention, language, abstraction or orientation. At the time of discharge she presented as a casually groomed 58-year-old male who was pleasant on approach. He made eye contact and attended to the interview. He was restless but had no distinguishing features or prominent physical abnormalities. He had a blunted facial expression. He was alert and oriented to person, place and time. He was tremulous but showed no abnormal movements. Her speech was spontaneous with normal rate, rhythm and volume. He had no articulation difficulty. His affect was depressed and not reactive. He denied current suicidal ideation or wishes. He continues expressed depressive cognitions including hopelessness, helplessness and worthlessness. He ruminated about his disability and chronic anxiety. He did not express ideas reference, paranoid ideation or delusional thoughts. His thinking was abstract and associations were coherent, logical and goal directed. He denied hallucinations and did not appear to be responding to internal stimuli. Patient Condition at Discharge: Stable Plan - Discharge Summary New Discharge Prescriptions: New Cholecalciferol [Vitamin D3] 5,000 unit PO DAILY@1200 #30 tab Cinacalcet [Sensipar] 30 mg PO DAILY #30 tab Citalopram Hydrobromide [CeleXA] 30 mg PO DAILY #30 tab lamoTRIgine [LaMICtal] 100 mg PO HS #30 tab Lisinopril [Zestril] 5 mg PO DAILY #30 tab LORazepam [Ativan] 0.5 mg PO TID #90 tab QUEtiapine [SEROquel] 200 mg PO HS #30 tab Discontinued Brent Carbonate [Brent Carbonate ER] 450 mg PO BID Citalopram Hydrobromide [CeleXA] 20 mg PO DAILY lamoTRIgine [LaMICtal] 200 mg PO HS Brent Carbonate 150 mg PO HS Lisinopril [Zestril] 20 mg PO DAILY Cyanocobalamin [Vitamin B-12 Injection] 1,000 mcg SQ Q28D Discharge Medication List Cholecalciferol [Vitamin D3] 5,000 unit PO DAILY@1200 #30 tab 07/14/18 [Rx] Cinacalcet [Sensipar] 30 mg PO DAILY #30 tab 07/14/18 [Rx] Citalopram Hydrobromide [CeleXA] 30 mg PO DAILY #30 tab 07/14/18 [Rx] LORazepam [Ativan] 0.5 mg PO TID #90 tab 07/14/18 [Rx] Lisinopril [Zestril] 5 mg PO DAILY #30 tab 07/14/18 [Rx] QUEtiapine [SEROquel] 200 mg PO HS #30 tab 07/14/18 [Rx] lamoTRIgine [LaMICtal] 100 mg PO HS #30 tab 07/14/18 [Rx] Follow up Appointment(s)/Referral(s): Adryan Mann MD [Primary Care Provider] - 1-2 days Francy Iglesias MD [STAFF PHYSICIAN] - 1 Week Discharge Disposition: TRANSFER TO PSYCH HOSP/UNIT
[2018-07-14] MEDS ORDERED: QUEtiapine 100 MG TAB PO SCH (21:00)
== END 2018-07-14 19:02 | DRG 885 ==
LOC: EC 11:12 → 3MHU 14:04
PROVIDERS: ADMIT Psychiatry & Neurology Psychiatry; ATTEND Psychiatry & Neurology Psychiatry
DX: F31.4 Bipolar disorder, current episode depressed, severe, without psychotic features (principal); E87.1 Hypo-osmolality and hyponatremia; N17.9 Acute kidney failure, unspecified; R45.851 Suicidal ideations; D72.829 Elevated white blood cell count, unspecified; E21.0 Primary hyperparathyroidism; F41.0 Panic disorder [episodic paroxysmal anxiety]; F41.1 Generalized anxiety disorder; G47.00 Insomnia, unspecified; I12.9 Hypertensive chronic kidney disease with stage 1 through stage 4 chronic kidney disease, or unspecified chronic kidney disease; N18.9 Chronic kidney disease, unspecified; Z79.899 Other long term (current) drug therapy; Z81.8 Family history of other mental and behavioral disorders; R63.0 Anorexia; Z68.26 Body mass index [BMI] 26.0-26.9, adult; E86.0 Dehydration; Z88.8 Allergy status to other drugs, medicaments and biological substances
CPT/HCPCS: 70450; 71046; 76536; 78071; 80048; 80053; 80061; 80178; 80306; 81003; 81050; 82075; 82306; 82340; 83036; 83735; 83930; 83935; 83970; 84100; 84300; 84443; 85025; 85027; 93005; 93306; 99285

== ENCOUNTER → 2018-11-12 | Outpatient (CLI) | payer MEDICARE, OTHER ==
[2018-11-12 11:08] LABS: HGB 13.9 gm/dL (13.0-17.5); MCH 29.9 pg (25.0-35.0); MCHC 32.2 g/dL (31.0-37.0); MCV 92.9 fL (80.0-100.0); Mean Platelet Volume 6.5; Platelet Count 309 k/uL (150-450); RBC 4.63 m/uL (4.30-5.90); RDW 13.3 % (11.5-15.5); WBC 7.8 k/uL (3.8-10.6)
[2018-11-12 19:14] LABS: Anion Gap 6.3 mmol/L (4.00-12.00); Calcium 11.2 mg/dL (8.7-10.3); Carbon Dioxide 24.7 mmol/L (21.6-31.8); Lithium 0.6 mmol/L (1.0-1.2); Potassium 4.8 mmol/L (3.5-5.5)
== END | disposition home or self-care (01) ==
LOC: LABWHC1 10:01
PROVIDERS: ATTEND Psychiatry & Neurology Psychiatry
DX: F31.60 Bipolar disorder, current episode mixed, unspecified (principal); Z79.899 Other long term (current) drug therapy
CPT/HCPCS: 36415; 80048; 80178; 85027

== ENCOUNTER → 2019-02-07 | Outpatient (CLI) | payer MEDICARE ==
[2019-02-07 16:58] LABS: Anion Gap 3.4 mmol/L (4.00-12.00); Calcium 11.6 mg/dL (8.7-10.3); Carbon Dioxide 26.6 mmol/L (21.6-31.8); Lithium 0.5 mmol/L (1.0-1.2); Potassium 4.4 mmol/L (3.5-5.5)
== END | disposition home or self-care (01) ==
LOC: LABWHC1 09:47
PROVIDERS: ATTEND Psychiatry & Neurology Psychiatry
DX: F31.60 Bipolar disorder, current episode mixed, unspecified (principal); Z79.899 Other long term (current) drug therapy
CPT/HCPCS: 36415; 80048; 80178

== ENCOUNTER → 2019-02-13 | Outpatient (CLI) | payer MEDICARE, BC ==
[2019-02-13 11:44] LABS: HCT 44.9 % (39.0-53.0); HGB 14.3 gm/dL (13.0-17.5); MCH 28.9 pg (25.0-35.0); MCHC 31.8 g/dL (31.0-37.0); MCV 90.9 fL (80.0-100.0); Mean Platelet Volume 6.6; Platelet Count 361 k/uL (150-450); RBC 4.94 m/uL (4.30-5.90); RDW 13.3 % (11.5-15.5); WBC 8.7 k/uL (3.8-10.6)
[2019-02-13 12:58] LABS: Ionized Calcium 6.5 mg/dL (4.5-5.3)
[2019-02-13 17:34] LABS: T4, Free (Free Thyroxine) 1.3 ng/dL (0.80-1.80)
[2019-02-13 17:40] LABS: Anion Gap 6.9 mmol/L (4.00-12.00); Calcium 11.3 mg/dL (8.7-10.3); Carbon Dioxide 24.1 mmol/L (21.6-31.8); LDL Cholesterol,Calculated 103.4 mg/dL (0.0-131.0); Potassium 4.8 mmol/L (3.5-5.5); VLDL Calculation 19.6 mg/dL (5.00-40.00)
== END ==
LOC: LABWHC1 10:30
PROVIDERS: ATTEND Internal Medicine
DX: E03.9 Hypothyroidism, unspecified (principal); R53.83 Other fatigue
CPT/HCPCS: 36415; 80048; 80061; 82330; 82550; 83970; 84439; 84443; 84450; 84460; 84481; 85027

== ENCOUNTER → 2019-03-10 | Outpatient (CLI) | payer MEDICARE, BC ==
--- NOTE | 2019-03-10 15:09 | BD ---
EXAMINATION TYPE: Axial Bone Density DATE OF EXAM: 03/10/2019 COMPARISON: NONE CLINICAL HISTORY: Height: 70 IN Weight: 197 LBS FRAX RISK QUESTIONS: Family History (Parent hip fracture): YES MOTHER RISK FACTORS HISTORY OF: Family History of Osteoporosis: YES MOTHER Active: YES Diet low in dairy products/other sources of calcium: YES Hyperparathyroidism: YES MEDICATIONS: Additional Medications: 900 MG LITHIUM, LEXAPRO, LISINOPRIL, NORVASC, FLOMAX, B12 EXAM MEASUREMENTS: Bone mineral densitometry was performed using the Snipi System. Bone mineral density as measured about the Lumbar spine is: ----- L1-L4(G/cm2): 1.351 T Score Values are as follows: ----- L2: 2.2 ----- L3: 1.4 ----- L4: 0.9 ----- L1-L4: 1.4 Bone mineral density BASELINE Bone mineral density about the R hip (g/cm2): 0.993 Bone mineral density about the L hip (g/cm2): 0.991 T Score values are as follows: -----R Neck: -0.3 -----L Neck: -0.3 -----R Total: 0.5 -----L Total: 0.2 Bone mineral density BASELINE IMPRESSION: Normal (Values between +1 and -1 indicate normal bone mass). Consider repeating this study in 5 year s or sooner if there is some new clinical indication. NOTE: T-SCORE=SD OF THE YOUNG ADULT MEAN.
== END | disposition home or self-care (01) ==
LOC: RADBDWWP 13:06
PROVIDERS: ATTEND Surgery
DX: E21.0 Primary hyperparathyroidism (principal)
CPT/HCPCS: 77080

== ENCOUNTER → 2019-04-14 | Outpatient (CLI) | payer MEDICARE, BC ==
[2019-04-14 17:02] LABS: African American GFR (CKD) 94.4 (60.0-200.0); Anion Gap 6.7 mmol/L (4.00-12.00); Calcium 9.6 mg/dL (8.7-10.3); Carbon Dioxide 22.3 mmol/L (21.6-31.8); Lithium 0.8 mmol/L (1.0-1.2); Potassium 4.8 mmol/L (3.5-5.5)
== END ==
LOC: LABWHC1 09:51
PROVIDERS: ATTEND Psychiatry & Neurology Psychiatry
DX: F31.60 Bipolar disorder, current episode mixed, unspecified (principal); Z79.899 Other long term (current) drug therapy
CPT/HCPCS: 36415; 80048; 80178

== ENCOUNTER → 2019-05-05 | Outpatient (CLI) | payer MEDICARE, BC ==
[2019-05-05 18:14] LABS: Vitamin D 25 Hydroxy 32.2 ng/mL (30.0-100.0)
[2019-05-05 18:59] LABS: Parathyroid Hormone Intact 31.2 pg/mL (14.0-72.0)
== END | disposition home or self-care (01) ==
LOC: LABWHC1 09:28
PROVIDERS: ATTEND Internal Medicine Endocrinology, Diabetes & Metabolism
DX: E21.3 Hyperparathyroidism, unspecified (principal); E55.9 Vitamin D deficiency, unspecified
CPT/HCPCS: 36415; 82306; 82310; 83970

== ENCOUNTER → 2019-06-30 | Outpatient (CLI) | payer MEDICARE, BC | END | disposition home or self-care (01) | LOC: LAB 08:58 | PROVIDERS: ATTEND Psychiatry & Neurology Psychiatry | DX: F31.60 Bipolar disorder, current episode mixed, unspecified (principal); Z79.899 Other long term (current) drug therapy | CPT/HCPCS: 80178 ==

== ENCOUNTER → 2019-11-18 | Outpatient (CLI) | payer MEDICARE, BC ==
[2019-11-18 20:31] LABS: African American GFR (CKD) 75.7 (60.0-200.0); Anion Gap 2.3 mmol/L (4.00-12.00); BUN/Creat Ratio 16.67 Ratio (12.00-20.00); Calcium 9.6 mg/dL (8.7-10.3); Carbon Dioxide 29.7 mmol/L (21.6-31.8); Lithium 0.8 mmol/L (0.5-1.2); Non-African American GFR(CKD) 65.3 (60.0-200.0); Potassium 4.3 mmol/L (3.5-5.5)
== END | disposition home or self-care (01) ==
LOC: LABWHC1 12:00
PROVIDERS: ATTEND Psychiatry & Neurology Psychiatry
DX: F31.60 Bipolar disorder, current episode mixed, unspecified (principal); Z79.899 Other long term (current) drug therapy
CPT/HCPCS: 36415; 80048; 80178

== ENCOUNTER → 2020-03-24 | Outpatient (CLI) | payer MEDICARE, BC ==
[2020-03-24 12:28] LABS: HCT 44.1 % (39.0-53.0); HGB 14.3 gm/dL (13.0-17.5); MCH 30.3 pg (25.0-35.0); MCHC 32.4 g/dL (31.0-37.0); MCV 93.6 fL (80.0-100.0); Mean Platelet Volume 6.8; Platelet Count 341 k/uL (150-450); RBC 4.71 m/uL (4.30-5.90); RDW 13.1 % (11.5-15.5)
[2020-03-24 21:10] LABS: African American GFR (CKD) 75.2 (60.0-200.0); Anion Gap 5.7 mmol/L (4.00-12.00); BUN/Creat Ratio 19.17 Ratio (12.00-20.00); Calcium 9.6 mg/dL (8.7-10.3); Carbon Dioxide 28.3 mmol/L (21.6-31.8); Lithium 1.2 mmol/L (0.5-1.2); Non-African American GFR(CKD) 64.9 (60.0-200.0)
== END | disposition home or self-care (01) ==
LOC: LABWHC1 11:38
PROVIDERS: ATTEND Psychiatry & Neurology Psychiatry
DX: F31.60 Bipolar disorder, current episode mixed, unspecified (principal); Z79.899 Other long term (current) drug therapy
CPT/HCPCS: 36415; 80048; 80178; 84460; 85027

== ENCOUNTER → 2020-05-04 | Outpatient (CLI) | payer MEDICARE, BC ==
[2020-05-04 18:44] LABS: African American GFR (CKD) 75.2 (60.0-200.0); Anion Gap 6.6 mmol/L (4.00-12.00); BUN/Creat Ratio 17.5 Ratio (12.00-20.00); Calcium 9.6 mg/dL (8.7-10.3); Carbon Dioxide 22.4 mmol/L (21.6-31.8); Non-African American GFR(CKD) 64.9 (60.0-200.0); Potassium 4.5 mmol/L (3.5-5.5)
== END | disposition home or self-care (01) ==
LOC: LABWHC1 07:39
PROVIDERS: ATTEND Psychiatry & Neurology Psychiatry
DX: F31.60 Bipolar disorder, current episode mixed, unspecified (principal); Z79.899 Other long term (current) drug therapy
CPT/HCPCS: 36415; 80048; 80178

== ENCOUNTER → 2020-06-27 | Outpatient (CLI) | payer MEDICARE, BC ==
[2020-06-27 15:35] LABS: African American GFR (CKD) 75.2 (60.0-200.0); Anion Gap 6.4 mmol/L (4.00-12.00); BUN/Creat Ratio 20.83 Ratio (12.00-20.00); Carbon Dioxide 23.6 mmol/L (21.6-31.8); Lithium 0.5 mmol/L (0.5-1.2); Non-African American GFR(CKD) 64.9 (60.0-200.0); Potassium 4.3 mmol/L (3.5-5.5)
== END | disposition home or self-care (01) ==
LOC: LABWHC1 08:15
PROVIDERS: ATTEND Psychiatry & Neurology Psychiatry
DX: F31.60 Bipolar disorder, current episode mixed, unspecified (principal); Z79.899 Other long term (current) drug therapy
CPT/HCPCS: 36415; 80048; 80178

== ENCOUNTER → 2020-07-08 | Outpatient (CLI) | payer MEDICARE, BC ==
[2020-07-08 15:04] LABS: Basophils # (A) 0.1 k/uL (0-0.2); Basophils % (A) 1 %; Eosinophils # (A) 0.2 k/uL (0-0.7); Eosinophils % (A) 3 %; HCT 44.7 % (39.0-53.0); HGB 14.4 gm/dL (13.0-17.5); Lymphocytes # (A) 1.3 k/uL (1.0-4.8); Lymphocytes % (A) 16 %; MCH 29.8 pg (25.0-35.0); MCHC 32.3 g/dL (31.0-37.0); MCV 92.1 fL (80.0-100.0); Mean Platelet Volume 6.5; Monocytes # (A) 0.5 k/uL (0-1.0); Monocytes % (A) 6 %; Neutrophils # (A) 5.6 k/uL (1.3-7.7); Neutrophils % (A) 72 %; Platelet Count 304 k/uL (150-450); RBC 4.85 m/uL (4.30-5.90); RDW 12.8 % (11.5-15.5); WBC 7.8 k/uL (3.8-10.6)
[2020-07-08 20:55] LABS: African American GFR (CKD) 68.3 (60.0-200.0); Albumin 4.2 g/dL (3.80-4.90); Albumin/Globulin Ratio 1.83 (1.60-3.17); Anion Gap 6.3 mmol/L (4.00-12.00); BUN/Creat Ratio 18.46 Ratio (12.00-20.00); Calcium 9.4 mg/dL (8.7-10.3); Carbon Dioxide 25.7 mmol/L (21.6-31.8); Globulin 2.3 g/dL (1.6-3.3); Non-African American GFR(CKD) 58.9 (60.0-200.0); Potassium 4.7 mmol/L (3.5-5.5); Total Bilirubin 0.6 mg/dL (0.3-1.2); Total Protein 6.5 g/dL (6.2-8.2)
== END | disposition home or self-care (01) ==
LOC: LABWHC1 13:22
PROVIDERS: ATTEND Internal Medicine Gastroenterology
DX: K86.1 Other chronic pancreatitis (principal); R19.7 Diarrhea, unspecified
CPT/HCPCS: 36415; 80053; 83690; 85025

== ENCOUNTER → 2020-09-27 | Outpatient (CLI) | payer MEDICARE, BC | END | disposition home or self-care (01) | LOC: LABWHC1 08:37 | PROVIDERS: ATTEND Psychiatry & Neurology Psychiatry | DX: F31.60 Bipolar disorder, current episode mixed, unspecified (principal); Z79.899 Other long term (current) drug therapy | CPT/HCPCS: 36415; 80178 ==

== ENCOUNTER → 2021-05-03 | Outpatient (CLI) | payer MEDICARE, BC ==
[2021-05-03 09:47] LABS: Appearance,Urine Clear (Clear); Bilirubin,Urine Negative (Negative); Blood,Urine Negative (Negative); Color,Urine Yellow; Glucose,Urine (UA) Negative (Negative); Ketones,Urine Negative (Negative); Leukocyte Esterase,Urine Negative (Negative); Nitrite,Urine Negative (Negative); PH, Urine 5.5 (5.0-8.0); Protein,Urine Negative (Negative); Specific Gravity,Urine 1.014 (1.001-1.035); Urobilinogen,Urine <2.0 mg/dL (<2.0)
[2021-05-03 11:39] LABS: HCT 43.6 % (39.6-50.0); MCH 30.1 pg (27.0-32.0); MCHC 32.1 g/dL (32.0-37.0); MCV 93.8 fL (80.0-97.0); Platelet Count 281 X 10*3/uL (140-440); RBC 4.65 X 10*6/uL (4.40-5.60); RDW 12.6 % (11.5-14.5); WBC 7.64 X 10*3/uL (4.50-10.00)
[2021-05-03 13:34] LABS: African American GFR (CKD) 82.9 (60.0-200.0); Albumin 4.3 g/dL (3.80-4.90); Albumin/Globulin Ratio 1.95 (1.60-3.17); Anion Gap 6.1 mmol/L (4.00-12.00); BUN/Creat Ratio 18.18 Ratio (12.00-20.00); Calcium 9.2 mg/dL (8.7-10.3); Carbon Dioxide 22.9 mmol/L (21.6-31.8); Chol/HDL Ratio 4.22; Globulin 2.2 g/dL (1.6-3.3); LDL Cholesterol,Calculated 125.4 mg/dL (0.0-131.0); Lithium 0.7 mmol/L (0.5-1.2); Non-African American GFR(CKD) 71.6 (60.0-200.0); Potassium 4.3 mmol/L (3.5-5.5); Total Bilirubin 0.8 mg/dL (0.3-1.2); Total Protein 6.5 g/dL (6.2-8.2); VLDL Calculation 19.6 mg/dL (5.00-40.00)
[2021-05-03 13:39] LABS: Prostate Specific Antigen 3.7 ng/mL (0.0-4.5)
== END | disposition home or self-care (01) ==
LOC: LABWHC1 08:14
PROVIDERS: ATTEND Psychiatry & Neurology Psychiatry
DX: N40.0 Benign prostatic hyperplasia without lower urinary tract symptoms (principal); F31.60 Bipolar disorder, current episode mixed, unspecified; Z79.899 Other long term (current) drug therapy
CPT/HCPCS: 36415; 80053; 80061; 80178; 81003; 84153; 84439; 84443; 85027

== ENCOUNTER → 2021-06-06 | Outpatient (CLI) | payer MEDICARE, BC ==
[2021-06-06 19:59] LABS: Hemoglobin A1C 5.1 % (4.0-6.0)
== END | disposition home or self-care (01) ==
LOC: LABWHC1 10:50
PROVIDERS: ATTEND Psychiatry & Neurology Psychiatry
DX: R73.9 Hyperglycemia, unspecified (principal)
CPT/HCPCS: 36415; 83036

== ENCOUNTER → 2021-08-09 | Outpatient (CLI) | payer MEDICARE, BC | END | disposition home or self-care (01) | LOC: LABWHC1 10:52 | PROVIDERS: ATTEND Psychiatry & Neurology Psychiatry | DX: F31.60 Bipolar disorder, current episode mixed, unspecified (principal); Z79.899 Other long term (current) drug therapy | CPT/HCPCS: 36415; 80175; 80178 ==

== ENCOUNTER → 2021-10-02 | Outpatient (CLI) | payer MEDICARE, BC | END | disposition home or self-care (01) | LOC: LABWHC1 10:30 | PROVIDERS: ATTEND Psychiatry & Neurology Psychiatry | DX: F31.60 Bipolar disorder, current episode mixed, unspecified (principal); Z79.899 Other long term (current) drug therapy | CPT/HCPCS: 36415; 80178 ==

== ENCOUNTER → 2022-02-01 | Outpatient (CLI) | payer MEDICARE, BC ==
[2022-02-01 14:52] LABS: HCT 44.8 % (39.6-50.0); HGB 14.1 g/dL (13.0-17.0); MCH 29.3 pg (27.0-32.0); MCHC 31.5 g/dL (32.0-37.0); MCV 93.1 fL (80.0-97.0); NRBC Per 100 WBC 0 /100 WBCS (0.0-0.0); Platelet Count 282 X 10*3/uL (140-440); RBC 4.81 X 10*6/uL (4.40-5.60); RDW 12.7 % (11.5-14.5); WBC 7.96 X 10*3/uL (4.50-10.00)
[2022-02-01 15:41] LABS: ALT 30 U/L (10-49); AST 20 U/L (14-35); African American GFR (CKD) 74.1 (60.0-200.0); Albumin 4.5 g/dL (3.8-4.9); Albumin/Globulin Ratio 1.96 (1.60-3.17); Alkaline Phosphatase 59 U/L (41-126); Blood Urea Nitrogen 20.4 mg/dL (9.0-27.0); Calcium 9.9 mg/dL (8.7-10.3); Chloride 104 mmol/L (96-109); Globulin 2.3 g/dL (1.6-3.3); Glucose 97 mg/dL (70-110); Potassium 4.4 mmol/L (3.5-5.5); Sodium 138 mmol/L (135-145); Total Protein 6.8 g/dL (6.2-8.2)
[2022-02-01 15:42] LABS: Chol/HDL Ratio 3.87 Ratio; LDL Cholesterol,Calculated 111.6 mg/dL (0.0-131.0)
== END | disposition home or self-care (01) ==
LOC: LABWHC1 09:11
PROVIDERS: ATTEND Psychiatry & Neurology Psychiatry
DX: I10 Essential (primary) hypertension (principal); F31.60 Bipolar disorder, current episode mixed, unspecified
CPT/HCPCS: 36415; 80053; 80061; 80178; 84153; 84439; 84443; 85027

== ENCOUNTER → 2022-02-19 | Outpatient (CLI) | payer MEDICARE, BC | END | disposition home or self-care (01) | LOC: LABWHC1 09:09 | PROVIDERS: ATTEND Urology | DX: R97.20 Elevated prostate specific antigen [PSA] (principal) | CPT/HCPCS: 36415; 84153; 84154 ==